=== PATIENT | female | born 1980 | race Caucasian/White ===

== ENCOUNTER 2021-06-01 01:46 | Inpatient (IN) | payer MEDICAID ==
[~2021-06-01] VITALS: Ht 162.5 cm; Wt 124.0 kg
[2021-06-01] MEDS: dilTIAZem DRIP PRE-MIX 125 ML IV SCH ×3 (03:15→22:55)
[2021-06-01] MEDS ORDERED: dilTIAZem DRIP PRE-MIX 125 ML IV ONE (03:26)
[2021-06-01] MEDS ORDERED: ACETAMINOPHEN 500 MG TAB (TYLENOL) PO PRN (03:30)
[2021-06-01] MEDS ORDERED: ONDANSETRON 4 MG/2 ML (SDV) Z0FRAN IVP PRN (03:30)
[2021-06-01 04:19] LABS: BASOPHILS # (AUTO) 0.1 10^3/uL (0.0-0.1); BASOPHILS % (AUTO) 0 % (0-10); EOSINOPHILS % (AUTO) 0 % (0-10); HEMATOCRIT 39 % (35-52); HEMOGLOBIN 11.9 g/dL (11.5-16.0); LYMPHOCYTES # (AUTO) 1.1 10^3/uL (1.0-4.0); LYMPHOCYTES % (AUTO) 5 % (12-44); MEAN CORPUSCULAR HEMOGLOBIN 26 pg (25-34); MEAN CORPUSCULAR HGB CONC 31 g/dL (32-36); MEAN CORPUSCULAR VOLUME 85 fL (80-99); MEAN PLATELET VOLUME 9.3 fL (9.0-12.2); MONOCYTES # (AUTO) 0.3 10^3/uL (0.0-1.0); MONOCYTES % (AUTO) 1 % (0-12); NEUTROPHILS # (AUTO) 18.4 10^3/uL (1.8-7.8); NEUTROPHILS % (AUTO) 92 % (42-75); PLATELET COUNT 389 10^3/uL (130-400)
[2021-06-01 04:27] LABS: POTASSIUM 3.6 MMOL/L (3.6-5.0)
[2021-06-01 04:28] LABS: CALCIUM 8.9 MG/DL (8.5-10.1)
[2021-06-01 04:32] LABS: CREATININE SERUM 0.7 MG/DL (0.60-1.30); PHOSPHORUS 2.6 MG/DL (2.3-4.7)
[2021-06-01 04:35] LABS: MAGNESIUM 1.7 MG/DL (1.6-2.4)
[2021-06-01] MEDS: KCL 20 MEQ TAB (K-DUR) PO SCH (05:20)
[2021-06-01] MEDS: MAGNESIUM 1 GM/100 ML IVPB 100 ML IV SCH ×2 (05:20→05:56)
[2021-06-01] MEDS: POTASSIUM CL 10MEQ/50ML IVPB 50 ML IV SCH (05:20)
[2021-06-01 05:26] LABS: BAND NEUTROPHILS 1 %; HYPOCHROMASIA SLIGHT; LYMPHOCYTES % (MANUAL) 5 %; MICROCYTOSIS SLIGHT; NEUTROPHILS % (MANUAL) 94 %
[2021-06-01] MEDS: inSUlin ASPART (NovoLOG) 1 UNIT/0.01 ML (CHARGE PER UNIT) SC SCH ×4 (05:55→20:42)
--- NOTE | 2021-06-01 07:29 | Diagnostic Imaging Report ---
INDICATION: Short of breath EXAMINATION: Chest 06/01/2021 FINDINGS: There is an infiltrate in left perihilar region with diffuse increased interstitial markings throughout both lungs. Diffuse scattered infiltrates throughout the right lung likely. There is cardiomegaly and pulmonary vascular congestion. No effusions. No pneumothorax. IMPRESSION: 1. Pulmonary edema. 2. Diffuse infiltrates with more pronounced infiltrate in the left perihilar region. Follow-up recommended to assure complete resolution and exclude mass in the left perihilar region. Dictated by: Dictated on workstation # [id number]
[2021-06-01] MEDS ORDERED: KCL 20 MEQ TAB (K-DUR) PO ONE (08:00)
--- NOTE | 2021-06-01 08:27 | Consultation-Cardiology ---
HPI-Cardiology Cardiology Consultation: Date of Consultation 06/01/2021 Date of Admission 06/01/2021 Attending Physician Isabell Cardenas DO Admitting Physician Ivanna,Local Physician Consulting Physician TREVA LLANES JR, MD HPI: Time Seen by a Provider: 08:27 Chief Complaint: Reason for consultation: Atrial fibrillation. I had the pleasure of seeing Walter in the intensive care unit at [place], [place] this morning. She has a history of type 2 diabetes mellitus, peripheral arterial disease with previous nonhealing wounds, worse on the left leg, morbid obesity, and cigarette smoking. She denies any previous history of heart disease. For the past 3 days she has been having increasing dyspnea and dyspnea on exertion. Her chronic lower extremity edema has been about the same as usual. She denies any fever, chills, night sweats or cough. Her dyspnea gradually got worse and worse and yesterday she went to the emergency room at [place]. She was found to have acute respiratory failure and also in atrial fibrillation with a rapid ventricular rate. She was then transferred to our hospital for further evaluation. She was initially on BiPAP but this morning refused to wear the BiPAP. She states her breathing is starting to improve. She denies chest discomfort, paroxysmal nocturnal dyspnea, orthopnea, palpitations, lightheadedness, or syncope. She smokes half a pack of cigarettes per day. She cut down from previously smoking 2 packs of cigarettes per day. She admits to not taking her medication properly for her diabetes. She works part-time at [employer]. Because of the atrial fibrillation, a cardiology consultation was requested. Certain portions of this document may have been dictated utilizing voice recognition technology. Inherent to this technology, typographical and grammatical errors may exist. As much as I am diligent to identify and correct these mistakes, some errors may remain in the document. Review of Systems-Cardiology Review of Systems Other comments Review of 10 organ systems is as per the history of present illness, otherwise negative. [id number] Hx Patient Social History Smoking Status: Current Everyday Smoker Pt feels they are or have been: Unable to obtain Tobacco type used: Cigarettes Past Medical History PMH As described under Assessment. Family Medical History Family Medical History: The patient does not know of any family history of premature coronary artery disease. Allergies and Home Medications Allergies Coded Allergies: tramadol (Verified Adverse Reaction, Mild, "jitter", 9/15/21) Patient Home Medication List Home Medication List Reviewed: Yes Ibuprofen (Ibuprofen) 200 Mg Tablet, 800 MG PO Q8H PRN for PAIN-MILD (1-4), (Reported) Entered as Reported by: RENÉ WHALEN on 06/01/21 1026 Last Action: Reviewed Exam Vital Signs Vital Signs Date Time Temp Pulse Resp B/P (MAP) Pulse Ox O2 Delivery O2 Flow Rate FiO2 06/01/21 12:58 101 06/01/21 10:42 95 32 06/01/21 10:00 23 100/89 Nasal Cannula 8.00 06/01/21 08:00 36.1 Physical Exam General: Alert. No acute distress. Well nourished and appears stated age. She is morbidly obese. Eye: Extraocular movements are intact. Conjunctivae are clear. There are no xanthelasma. HENT: Normocephalic. Atraumatic. Carotid pulsations 2/2 without bruits. Neck: Jugular venous pressure does not appear elevated. No thyromegaly appreciated. Respiratory: Lungs have bibasilar crackles. Respirations are non-labored. Breath sounds are equal. Symmetrical chest wall expansion. Cardiovascular: Normal rate. Irregular rhythm. No murmur. No gallop. Point of maximal impulse is not appear displaced. Good pulses equal in all extremities. 1+ bilateral pretibial edema with some old healed wounds on her left leg below the knee. Gastrointestinal: Soft. Normal bowel sounds. Skin: Skin turgor is normal. There is no pallor. Musculoskeletal: No kyphosis or scoliosis appreciated. Neurologic: Alert and oriented to person, place, time. Cranial nerves 3-12 appear grossly intact. The patient has good motor tone strength in the upper and lower extremities bilaterally. Psychiatric: Cooperative. Appropriate mood & affect. Labs Laboratory Tests Test 06/01/21 04:08 06/01/21 08:32 06/01/21 10:05 Range/Units White Blood Count 20.0 H 4.3-11.0 10^3/uL Red Blood Count 4.56 3.80-5.11 10^6/uL Hemoglobin 11.9 11.5-16.0 g/dL Hematocrit 39 35-52 % Mean Corpuscular Volume 85 80-99 fL Mean Corpuscular Hemoglobin 26 25-34 pg Mean Corpuscular Hemoglobin Concent 31 L 32-36 g/dL Red Cell Distribution Width 16.4 H 10.0-14.5 % Platelet Count 389 130-400 10^3/uL Mean Platelet Volume 9.3 9.0-12.2 fL Immature Granulocyte % (Auto) 1 % Neutrophils (%) (Auto) 92 H 42-75 % Lymphocytes (%) (Auto) 5 L 12-44 % Monocytes (%) (Auto) 1 0-12 % Eosinophils (%) (Auto) 0 0-10 % Basophils (%) (Auto) 0 0-10 % Neutrophils # (Auto) 18.4 H 1.8-7.8 10^3/uL Lymphocytes # (Auto) 1.1 1.0-4.0 10^3/uL Monocytes # (Auto) 0.3 0.0-1.0 10^3/uL Eosinophils # (Auto) 0.0 0.0-0.3 10^3/uL Basophils # (Auto) 0.1 0.0-0.1 10^3/uL Immature Granulocyte # (Auto) 0.1 0.0-0.1 10^3/uL Neutrophils % (Manual) 94 % Lymphocytes % (Manual) 5 % Band Neutrophils 1 % Hypochromasia SLIGHT Microcytosis SLIGHT Sodium Level 137 135-145 MMOL/L Potassium Level 3.6 3.6-5.0 MMOL/L Chloride Level 105 98-107 MMOL/L Carbon Dioxide Level 20 L 21-32 MMOL/L Anion Gap 12 5-14 MMOL/L Blood Urea Nitrogen 8 7-18 MG/DL Creatinine 0.70 0.60-1.30 MG/DL Estimat Glomerular Filtration Rate 93 BUN/Creatinine Ratio 11 Glucose Level 235 H 70-105 MG/DL Calcium Level 8.9 8.5-10.1 MG/DL Phosphorus Level 2.6 2.3-4.7 MG/DL Magnesium Level 1.7 1.6-2.4 MG/DL Troponin I 0.029 H < 0.028 <0.028 NG/ML B-Type Natriuretic Peptide 559.1 H <100.0 PG/ML Triglycerides Level 75 <150 MG/DL Cholesterol Level 114 < 200 MG/DL LDL Cholesterol Direct 87 1-129 MG/DL VLDL Cholesterol 15 5-40 MG/DL HDL Cholesterol 22 L 40-60 MG/DL Procalcitonin 0.04 <0.10 NG/ML Glucometer 280 H 70-110 MG/DL Radiology ELECTROCARDIOGRAM: Atrial fibrillation with a ventricular rate of 90 bpm with occasional premature ventricular complexes versus aberrantly conducted atrial fibrillation and poor R wave progression. ECHOCARDIOGRAM: 1. The patient was in atrial fibrillation for the duration of the study. 2. Mild left ventricular dilatation with mild concentric left ventricular hypertrophy. Mild left ventricular systolic dysfunction with an estimated ejection fraction of 40-45% with global hypokinesis. 3. The left ventricular diastolic function could not be determined due to atrial fibrillation. 4. The left atrium is moderately dilated at 5.5 cm in diameter. 5. There is mild to moderate mitral regurgitation. 6. The estimated pulmonary artery systolic pressure is 30 mmHg. 7. The inferior vena cava is dilated but with normal respiratory variation which is consistent with mildly elevated right atrial pressure (8 mmHg). ECG Impression ECG Comment See above. Diagnosis/Problems Diagnosis/Problems (1) Paroxysmal atrial fibrillation Assessment & Plan: Exact duration unknown. The patient seems to be asymptomatic with this. She does have moderate dilatation of the left atrium which is suggestive of possible prolonged atrial fibrillation. I have added a TSH level to her blood work from this morning. Her heart rates are controlled on IV diltiazem. I will add long-acting metoprolol and attempt to wean off the intravenous diltiazem. I would like to avoid oral diltiazem given her left ventricular systolic dysfunction. I will also start her on rivaroxaban for stroke prophylaxis in anticipation of performing a cardioversion in the future. I should note, her [id number] score is 2 for female sex and diabetes. (2) Acute systolic heart failure Assessment & Plan: She has pulmonary congestion on her chest x-ray as well as bibasilar crackles and an elevated BNP in the setting of mild left ventricular systolic dysfunction. I will start her on IV furosemide. (3) Cardiomyopathy Assessment & Plan: She has mild left ventricular systolic dysfunction as noted on the echocardiogram from this morning. Some of this could be related to the atrial fibrillation with rapid ventricular rate resulting in tachycardia mediated cardiomyopathy. She does have evidence of congestive heart failure as outlined above. I will start her on metoprolol succinate. If her blood pressure tolerates the metoprolol, ultimately I will want to get her on ROLAND inhibitor or ARB. When she recovers from this acute illness, she will need an ischemic evaluation. I would prefer to do this after we get the patient back in a sinus rhythm. (4) Acute respiratory failure with hypoxemia Assessment & Plan: I suspect this is in part due to heart failure as well as perhaps her chronic obstructive pulmonary disease. I will initiate cardiac ther apy as above. The hospitalist will be managing the pulmonary side of things. (5) Peripheral arterial disease Assessment & Plan: Once she recovers from this acute illness, this will need long-term follow-up. (6) Cigarette smoker Assessment & Plan: Cigarette smoking cessation was strongly advised. The patient is already trying to cut down and has gone from 2 packs of cigarettes per day down to half pack of cigarettes per day. I congratulated her on her efforts. (7) Noncompliance with medication regimen Assessment & Plan: I stressed to the patient the importance of being compliant with medication, especially in light of her newly diagnosed cardiac disease. (8) Morbid obesity Assessment & Plan: She needs to work on weight loss. TREVA LLANES JR, MD Jun 01, 2021 08:27
[2021-06-01] MEDS ORDERED: IBUP-2473 PO (10:26)
[2021-06-01 10:42] VITALS: BP 109/72
[2021-06-01] MEDS ORDERED: RT-ALBUTEROL/IPRATROPIUM 3 ML (DUONEB) VIAL INH PRN (10:45)
[2021-06-01] MEDS: RT-ALBUTEROL/IPRATROPIUM 3 ML (DUONEB) VIAL INH SCH ×4 (10:59→21:43)
--- NOTE | 2021-06-01 11:53 | Progress Note ---
HARIS VÁSQUEZ MED STUDENT 06/01/21 1153: Subjective Date Seen by a Provider: Jun 01, 2021 Time Seen by a Provider: 08:00 Subjective/Events-last exam Patient awake, alert and getting TTE at bedside in room. She denies chest pain, SOB, headache, fevers, chills, nausea, dizziness, syncope, and palpitations. She reports she's breathing better and denies SOB. Tolerated BIPAP while it was on. Currently monitor shows atrial fibrillation and she's on a cardizem gtt at 10mg/hr. Review of Systems General: No Chills, No Night Sweats HEENT: No Head Aches, No Visual Changes Pulmonary: No Dyspnea, No Cough Cardiovascular: Edema (chronic BLE edema); No: Chest Pain, Palpitations, Paroxysmal Noc. Dyspnea Gastrointestinal: No: Nausea, Vomiting Genitourinary: No Dysuria, No Frequency Musculoskeletal: No: neck pain, back pain Neurological: No: Weakness, Numbness Objective Exam Last Set of Vital Signs Vital Signs Date Time Temp Pulse Resp B/P (MAP) Pulse Ox O2 Delivery O2 Flow Rate FiO2 06/01/21 10:42 103 95 32 06/01/21 10:00 23 100/89 Nasal Cannula 8.00 06/01/21 03:51 36.4 Capillary Refill : Less Than 3 Seconds General: Alert, Oriented X3, Cooperative, No Acute Distress, Other (Morbidly obese female appearing older than stated age) HEENT: Atraumatic, PERRLA, EOMI, Mucous Memb Moist/[place] Neck: Supple, No LAD Lungs: Clear to Auscultation, Normal Air Movement Heart: No Murmurs, Other (Irregularrly irregular. Afib per bedside monitor. 1+ bilat pitting edema lower extremities. ) Abdomen: Normal Bowel Sounds, Soft, No Tenderness, Other (Obese. BS normoactive x 4 quadrants. ) Extremities: No Clubbing, No Cyanosis, Normal Pulses, No Tenderness/Swelling Skin: No Rashes, No Breakdown, No Significant Lesion, Other (Old healed ulcers on lower aspect bilat lower extremities distal to knee. Discolored. ) Neuro: Normal Speech, Normal Tone, Sensation Intact, Cranial Nerves 3-12 NL Psych/Mental Status: Mental Status NL, Mood NL Results Lab Laboratory Tests 06/01/21 04:08: White Blood Count 20.0H, Red Blood Count 4.56, Hemoglobin 11.9, Hematocrit 39, Mean Corpuscular Volume 85, Mean Corpuscular Hemoglobin 26, Mean Corpuscular Hemoglobin Concent 31L, Red Cell Distribution Width 16.4H, Platelet Count 389, Mean Platelet Volume 9.3, Immature Granulocyte % (Auto) 1, Neutrophils (%) (Auto) 92H, Lymphocytes (%) (Auto) 5L, Monocytes (%) (Auto) 1, Eosinophils (%) (Auto) 0, Basophils (%) (Auto) 0, Neutrophils # (Auto) 18.4H, Lymphocytes # (Auto) 1.1, Monocytes # (Auto) 0.3, Eosinophils # (Auto) 0.0, Basophils # (Auto) 0.1, Immature Granulocyte # (Auto) 0.1, Neutrophils % (Manual) 94, Lymphocytes % (Manual) 5, Band Neutrophils 1, Hypochromasia SLIGHT, Microcytosis SLIGHT, Sodium Level 137, Potassium Level 3.6, Chloride Level 105, Carbon Dioxide Level 20L, Anion Gap 12, Blood Urea Nitrogen 8, Creatinine 0.70, Estimat Glomerular Filtration Rate 93, BUN/Creatinine Ratio 11, Glucose Level 235H, Calcium Level 8.9, Phosphorus Level 2.6, Magnesium Level 1.7, Troponin I 0.029H, B-Type Natriuretic Peptide 559.1H, Triglycerides Level 75, Cholesterol Level 114, LDL Cholesterol Direct 87, VLDL Cholesterol 15, HDL Cholesterol 22L, Procalcitonin 0.04 06/01/21 08:32: Glucometer 280H 06/01/21 10:05: Troponin I < 0.028 Radiology NAME: GUALBERTO ZAMORA [facility] REC#: [id number] PT STATUS: ADM IN : 1980 PHYSICIAN: ISABELL GERARDO DO ADMIT DATE: 06/01/21/ICU Signed Date of Exam:06/01/21 CHEST 1 VIEW, AP/PA ONLY INDICATION: Short of breath EXAMINATION: Chest 06/01/2021 FINDINGS: There is an infiltrate in left perihilar region with diffuse increased interstitial markings throughout both lungs. Diffuse scattered infiltrates throughout the right lung likely. There is cardiomegaly and pulmonary vascular congestion. No effusions. No pneumothorax. IMPRESSION: 1. Pulmonary edema. 2. Diffuse infiltrates with more pronounced infiltrate in the left perihilar region. Follow-up recommended to assure complete resolution and exclude mass in the left perihilar region. Dictated by: Dictated on workstation # [id number] Dict: 06/01/2125 Trans: 06/01/21 1110 [facility] [id number] Interpreted by: EM GARCIA MD Electronically signed by: EM GARCIA MD 06/01/21 1110 Assessment/Plan Assessment/Plan Assess & Plan/Chief Complaint Atrial fibrillation with RVR -cardiology consulted -cardizem gtt -anticoagulation Acute hypoxic respiratory failure -BIPAP, wean to NC as tolerated -ABG if worsening respiratory/mental status -Keep sat's >90% -IS Systolic HF -echo showed EF 45-50% -Pulmonary edema. Diffuse infiltrates with more pronounced infiltrate in the left perihilar region. -BNP of 559 -cards seeing -diurese Leukocytosis -WBC of 20.0 -reactive vs infection? -procalcitonion 0.04 Type 2 Diabetes mellitus -accuchecks achs, SSI -diabetic diet -hgb a1c pending COPD -albuterol nebs -steroids Tobacco use -encouraged cessation PAD H/O medication noncompliance Morbid obesity ISABELL GERARDO DO 06/02/21 0552: Supervisory-Addendum Brief Verification & Attestation Participated in pt care: history, MDM, physical Personally performed: exam, history, MDM, supervision of care Care discussed with: Medical Student Procedures: n/a Results interpretation: Verified all documentation Verification and Attestation of Medical Student E/M Service A medical student performed and documented this service in my presence. I reviewed and verified all information documented by the medical student and made modifications to such information, when appropriate. I personally performed the physical exam and medical decision making. Isabell Gerardo Jun 02, 2021,05:51 HARIS VÁSQUEZ MED STUDENT Jun 01, 2021 11:53 ISABELL GERARDO DO Jun 02, 2021 05:52
[2021-06-01] MEDS ORDERED: meTOproloL SUCCINATE 50 MG (TOPROL XL) TAB PO NR (13:15)
[2021-06-01] MEDS ORDERED: RT-ALBUTEROL SULF 2.5 MG/3 ML PRE-MIX VIAL INH NR (13:30)
[2021-06-01] MEDS ORDERED: FUROSEMIDE 40 MG/4 ML INJ (LASIX) IVP NR (13:30)
--- NOTE | 2021-06-01 13:32 | History & Physical-Hospitalist ---
History of Present Illness HPI/Chief Complaint Walter Strong is a 40-year-old female with past medical history of type 2 diabetes mellitus, peripheral artery disease, tobacco abuse, super obesity, who was admitted as a transfer from [facility] with atrial fibrillation with rapid ventricular response. She reports that she had been feeling short of breath. She denies having cough. She denies fevers and chills. She denies chest pain and palpitations. She has no history of an irregular heartbeat. She has no history of heart disease. She denies abdominal pain, nausea, vomiting, and diarrhea. She reports that she is noncompliant with her prescribed medications. Source: patient Exam Limitations: no limitations Date Seen 06/01/21 Time Seen by a Provider: 08:40 Attending Physician Isabell Cardenas DO PCP No,Local Physician Referring Physician Date of Admission Jun 01, 2021 at 03:09 Home Medications & Allergies Home Medications Reviewed patient Home Medication Reconciliation performed by pharmacy medication reconciliations wastewater technician and/or nursing. Patients Allergies have been reviewed. Allergies Allergies Coded Allergies tramadol (Verified Adverse Reaction, Mild, "jitter", 06/01/21) Past Dtwlmow-Xqxkaj-Umyolr Hx Patient Social History Tobacco type used: Cigarettes Smoking Status: Current Everyday Smoker Pt feels they are or have been: Unable to obtain Current Status Advance Directives: No Communicates: Verbally Primary Language: Tongan Preferred Spoken Language: Tongan Is interpretation needed?: No Past Medical History Hypertension Diabetes, Non-Insulin dep Family Medical History No Pertinent Family Hx Review of Systems Constitutional: no symptoms reported EENTM: no symptoms reported Respiratory: short of breath Cardiovascular: no symptoms reported Gastrointestinal: no symptoms reported Genitourinary: no symptoms reported Musculoskeletal: no symptoms reported Skin: no symptoms reported Psychiatric/Neurological: No Symptoms Reported Physical Exam Physical Exam Vital Signs Vital Signs - First Documented 06/01/21 06/01/21 03:16 03:30 Temp 36.4 Pulse 112 Resp 18 B/P (MAP) 140/129 Pulse Ox 96 O2 Delivery NIV Bilevel O2 Flow Rate 35.00 FiO2 35 Capillary Refill : Less Than 3 Seconds Height, Weight, BMI Height: '" Weight: lbs. oz. kg; 47.14 BMI Method: General Appearance: No Apparent Distress, Obese HEENT: PERRL/EOMI, Pharynx Normal Neck: Normal Inspection, Supple Respiratory: Lungs Clear, Normal Breath Sounds, No Respiratory Distress Cardiovascular: No Murmur, Irregularly Irregular, Tachycardia Gastrointestinal: Normal Bowel Sounds, Non Tender, Soft Extremity: Normal Inspection, Non Tender, No Pedal Edema Neurologic/Psychiatric: Alert, Oriented x3, No Motor/Sensory Deficits, Normal Mood/Affect Skin: Normal Color, Warm/Dry Results Results/Procedures Labs Laboratory Tests 06/01/21 04:08 Patient resulted labs reviewed. Imaging: Reviewed Imaging Report Assessment/Plan Admission Diagnosis Atrial fibrillation with rapid ventricular response Admission Status: Inpatient Order (span 2 midnights) Reason for Inpatient Admission: IV antiarrhythmics Assessment and Plan New onset paroxysmal atrial fibrillation with rapid ventricular response Cardiology consulted, appreciate assistance Started on IV diltiazem Begin Xarelto Further treatment and evaluation per cardiology Pneumonia Chest x-ray with diffuse infiltrates and left periapical opacity Begin Rocephin and azithromycin T2DM with hyperglycemia Non-compliant with outpatient medication Begin Levemir Sliding scale insulin Super obesity Clinically significant, no acute management needs Tobacco abuse Nicotine patch DVT prophylaxis: already receiving therapeutic anticoagulation Diagnosis/Problems Diagnosis/Problems (1) Atrial fibrillation with rapid ventricular response Status: Acute (2) PNA (pneumonia) Status: Acute Qualifiers: Laterality: left (3) T2DM (type 2 diabetes mellitus) Status: Acute Qualifiers: Diabetes mellitus shelter insulin use: without extermination inspector use Diabetes mellitus complication status: with hyperglycemia Qualified Codes: E11.65 - Type 2 diabetes mellitus with hyperglycemia (4) Super obesity Status: Chronic ODESSA SOMMERS MD Jun 01, 2021 13:32
[2021-06-01] MEDS ORDERED: AZITHROMYCIN INJECTION 500 MG in NS (IVPB) 250 ML IV NR (13:45)
[2021-06-01] MEDS ORDERED: NICOTINE 14 MG (NICODERM) PATCH TD ONE (14:00)
[2021-06-01] MEDS: cefTRIAXone 2,000 MG in WATER (STERILE) FOR INJECTION 20 ML IV SCH (14:39)
[2021-06-01 14:45] VITALS: BP 150/99
[2021-06-01] MEDS ORDERED: WATER (STERILE) FOR INJECTION 20 ML ONE (14:45)
[2021-06-01] MEDS: RIVAROXABAN 20 MG TABLET (XARELTO) PO SCH (16:58)
--- NOTE | 2021-06-01 18:31 | Tele-ICU Progress Note ---
Subjective Date Seen by a Provider: Jun 01, 2021 Time Seen by a Provider: 08:08 Sepsis Event Evaluation Height, Weight, BMI Height: '" Weight: lbs. oz. kg; 47.14 BMI Method: Exam Exam Patient acknowledged, consented, and participated in this virtual visit which was conducted using real time audio/video Vital Signs Date Time Temp Pulse Resp B/P (MAP) Pulse Ox O2 Delivery O2 Flow Rate FiO2 06/01/21 18:00 112 14 144/95 95 Nasal Cannula 8.00 06/01/21 17:00 110 16 119/85 95 Nasal Cannula 8.00 06/01/21 16:00 Nasal Cannula 5.00 06/01/21 16:00 105 21 126/87 92 Nasal Cannula 8.00 06/01/21 16:00 36.6 06/01/21 15:00 125 25 144/121 93 Nasal Cannula 8.00 06/01/21 14:45 106 32 97 35.00 06/01/21 14:00 120 27 125/96 92 Nasal Cannula 8.00 06/01/21 13:00 89 14 158/114 94 Nasal Cannula 8.00 06/01/21 12:58 101 06/01/21 12:00 Nasal Cannula 5.00 06/01/21 12:00 98 16 140/94 92 Nasal Cannula 8.00 06/01/21 11:00 90 24 136/116 94 Nasal Cannula 8.00 06/01/21 10:42 103 95 32 06/01/21 10:00 111 23 100/89 93 Nasal Cannula 8.00 06/01/21 09:00 98 14 132/93 94 Nasal Cannula 8.00 06/01/21 08:19 Nasal Cannula 8.00 06/01/21 08:00 Nasal Cannula 5.00 06/01/21 08:00 36.1 06/01/21 08:00 101 18 114/87 97 NIV Bilevel 35.00 06/01/21 07:00 107 18 116/89 97 NIV Bilevel 35.00 06/01/21 06:43 91 06/01/21 06:00 96 21 128/97 97 NIV Bilevel 35.00 06/01/21 05:00 109 19 132/114 97 NIV Bilevel 35.00 06/01/21 04:45 112 22 128/102 96 NIV Bilevel 35.00 06/01/21 04:30 122 22 145/117 96 NIV Bilevel 35.00 06/01/21 04:15 115 21 138/120 96 NIV Bilevel 35.00 06/01/21 04:00 108 19 158/117 96 NIV Bilevel 35.00 06/01/21 03:51 36.4 112 18 83/53 96 NIV Bilevel 35.00 06/01/21 03:45 69 20 157/117 97 NIV Bilevel 35.00 06/01/21 03:30 109 20 140/129 95 NIV Bilevel 35.00 06/01/21 03:17 131 06/01/21 03:16 NIV Bilevel 35 06/01/21 03:16 36.4 112 18 96 NIV Bilevel 35.00 I & O 06/01/21 07:00 Intake Total 150 ml Output Total 1000 ml Balance -850 ml Height & Weight Height: '" Weight: lbs. oz. kg; 47.14 BMI Method: General Appearance: No Apparent Distress, Obese HEENT: PERRL/EOMI, Pharynx Normal Neck: Normal Inspection, Supple Respiratory: Lungs Clear, Normal Breath Sounds, No Respiratory Distress Cardiovascular: No Murmur, Irregularly Irregular, Tachycardia Capillary Refill: Less Than 3 Seconds Extremity: Normal Inspection, Non Tender, No Pedal Edema Neurologic/Psychiatric: Alert, Oriented x3, No Motor/Sensory Deficits, Normal Mood/Affect Skin: Normal Color, Warm/Dry Results Lab Laboratory Tests 06/01/21 04:08 Assessment/Plan Assessment/Plan (Tele-ICU Physician , consultation) Available chart/ vitals / labs / Images reviewed H&P is from ER notes Patient's information available about PMH, Shx, Fhx allergy reviewed in EMR. ROS as per chart and RN report Now in ICU, hemodynamically stable on BIPAP Video assessment done using teleICU camera, rest of exam as per RN Discussed with RN. 06/01 - transferred from OSH to ICU with a fib RVR / ARF on BIPAP Consultants: cards A/P Acute resp failure - pulm quin +/- PNA = Bipap 17/5 35% rr tv 700 - doing well on 5 L nc - Tx with lasix and steroids A fib RVR ( with h/o a fib -cardizem gtt started OSH - AC as per cards Leukocytosis - suspected PNA L>R - recom starting abx , PCT ordered by PCP - pending ( s/p COVID 4 month ago, neg swab 06/01 ) DM , Hyperglycemia - ISS COPD - nebs , steroids , Lines : (Central Line Necessity Reviewed) Gillis: OG: Nutrition: Analgesia: Anxiety/ delirium VTE Prophylaxis: Stress Ulcer Prophylaxis: Glycemic Control: Plans in collaboration with bedside consultants and IM MDs. Discussed with RN to reach out if any questions or concerns A total of 30minutes of critical care time was devoted to this patient today, required to treat and/or prevent further deterioration of critical care condition ( as above ) VINOD ALVAREZ MD Jun 01, 2021 18:31
[2021-06-01 23:07] LABS: BILIRUBIN,URINE NEGATIVE (NEGATIVE); CLARITY,URINE CLEAR; COLOR,URINE RED; GLUCOSE, URINE (UA) TRACE (NEGATIVE); KETONES,URINE NEGATIVE (NEGATIVE); LEUKOCYTE ESTERASE ,URINE TRACE (NEGATIVE); NITRITE,URINE NEGATIVE (NEGATIVE); PH,URINE 6.5 (5-9); PROTEIN,URINE NEGATIVE (NEGATIVE)
[2021-06-01 23:16] LABS: BACTERIA,URINE NEGATIVE /HPF; RBC,URINE TNTC /HPF
[2021-06-02] MEDS: RT-ALBUTEROL/IPRATROPIUM 3 ML (DUONEB) VIAL INH SCH ×6 (02:56→21:25)
[2021-06-02 05:41] LABS: BASOPHILS # (AUTO) 0.1 10^3/uL (0.0-0.1); BASOPHILS % (AUTO) 0 % (0-10); EOSINOPHILS % (AUTO) 0 % (0-10); HEMATOCRIT 35 % (35-52); HEMOGLOBIN 10.9 g/dL (11.5-16.0); LYMPHOCYTES # (AUTO) 2.9 10^3/uL (1.0-4.0); LYMPHOCYTES % (AUTO) 13 % (12-44); MEAN CORPUSCULAR HEMOGLOBIN 27 pg (25-34); MEAN CORPUSCULAR HGB CONC 32 g/dL (32-36); MEAN CORPUSCULAR VOLUME 84 fL (80-99); MEAN PLATELET VOLUME 9.4 fL (9.0-12.2); MONOCYTES # (AUTO) 1.1 10^3/uL (0.0-1.0); MONOCYTES % (AUTO) 5 % (0-12); NEUTROPHILS % (AUTO) 82 % (42-75); PLATELET COUNT 391 10^3/uL (130-400); WHITE BLOOD COUNT 23.3 10^3/uL (4.3-11.0)
[2021-06-02 05:51] LABS: ALBUMIN 3.2 GM/DL (3.2-4.5)
[2021-06-02 05:53] LABS: CALCIUM 8.8 MG/DL (8.5-10.1)
[2021-06-02 05:54] LABS: TOTAL PROTEIN 6.6 GM/DL (6.4-8.2)
[2021-06-02 05:55] LABS: BILIRUBIN,TOTAL 0.2 MG/DL (0.1-1.0)
[2021-06-02 05:58] LABS: CREATININE SERUM 0.71 MG/DL (0.60-1.30)
[2021-06-02 06:00] LABS: MAGNESIUM 2.4 MG/DL (1.6-2.4)
[2021-06-02] MEDS: POTASSIUM CL 10MEQ/50ML IVPB 50 ML IV SCH (06:02)
[2021-06-02] MEDS: MAGNESIUM 1 GM/100 ML IVPB 100 ML IV SCH (06:02)
[2021-06-02] MEDS: KCL 20 MEQ TAB (K-DUR) PO SCH (06:02)
[2021-06-02] MEDS: inSUlin ASPART (NovoLOG) 1 UNIT/0.01 ML (CHARGE PER UNIT) SC SCH ×4 (06:06→20:19)
--- NOTE | 2021-06-02 07:43 | Diagnostic Imaging Report ---
CHEST 1 VIEW, AP/PA ONLY Indication: Congestive heart failure. Comparison: 06/01/2021 Findings: Improving but persistent central vascular congestion and perihilar opacities. No pleural effusion or pneumothorax. Stable enlargement of the cardiac silhouette. Impression: 1. Improving but persistent pulmonary edema. Dictated by: Dictated on workstation # [id number]
[2021-06-02] MEDS: FUROSEMIDE 40 MG/4 ML INJ (LASIX) IVP SCH (08:28)
[2021-06-02] MEDS: NICOTINE 14 MG (NICODERM) PATCH TD SCH (08:29)
[2021-06-02] MEDS: NICOTINE PATCH REMOVAL TP SCH (08:29)
[2021-06-02] MEDS ORDERED: meTOproloL SUCCINATE 50 MG (TOPROL XL) TAB PO SCH (09:00)
[2021-06-02] MEDS ORDERED: AZITHROMYCIN 250 MG TAB (ZITHROMAX) PO SCH (09:00)
--- NOTE | 2021-06-02 09:10 | Progress Note ---
HARIS VÁSQUEZ MED STUDENT 06/02/21 0910: Subjective Date Seen by a Provider: Jun 02, 2021 Time Seen by a Provider: 07:45 Subjective/Events-last exam Patient awake and alert, oriented x 4. Denies complaints. Denies pain. Tolerating po intake well. Patient states didn't sleep well due to numerous interruptions overnight. She said "the doctors didn't tell me anything that's going on here." Reiterated her plan of care and answered questions she had. Review of Systems General: No Chills, No Night Sweats HEENT: No Head Aches, No Visual Changes Pulmonary: No Dyspnea, No Cough Cardiovascular: No: Chest Pain, Palpitations Gastrointestinal: No: Nausea, Vomiting Genitourinary: No Dysuria, No Frequency Musculoskeletal: No: neck pain, back pain Neurological: No: Weakness, Numbness, Change in speech, Confusion Objective Exam Last Set of Vital Signs Vital Signs Date Time Temp Pulse Resp B/P (MAP) Pulse Ox O2 Delivery O2 Flow Rate FiO2 06/02/21 08:00 36.0 06/02/21 07:10 94 Nasal Cannula 3.00 06/02/21 06:59 84 06/02/21 06:00 19 139/95 06/01/21 10:42 32 Capillary Refill : Less Than 3 Seconds I&O Intake and Output 06/02/21 00:00 Intake Total 2620 ml Output Total 3900 ml Balance -1280 ml Intake Oral 2000 ml IV Total 620 ml Output Urine Total 3900 ml # Voids 1 General: Alert, Oriented X3, Cooperative, No Acute Distress, Other (Morbidly obese. ) HEENT: Atraumatic, PERRLA, EOMI, Mucous Memb Moist/Blacktail Neck: Supple, No LAD Lungs: Clear to Auscultation Heart: Other (Irregularrly irregular by auscultation. Afib per monitor. ) Abdomen: Normal Bowel Sounds, Soft, No Tenderness, Other (obese) Extremities: No Clubbing, No Cyanosis, Normal Pulses, No Tenderness/Swelling Skin: No Rashes, No Breakdown, No Significant Lesion Neuro: Normal Speech, Normal Tone, Sensation Intact, Cranial Nerves 3-12 NL Psych/Mental Status: Mental Status NL Results Lab Laboratory Tests 06/01/21 10:05: Troponin I < 0.028, Thyroid Stimulating Hormone (TSH) 1.01 06/01/21 15:49: Glucometer 318H 06/01/21 20:36: Glucometer 247H 06/01/21 22:40: Urine Color REDH, Urine Clarity CLEAR, Urine pH 6.5, Urine Specific [place] 1.010L, Urine Protein NEGATIVE, Urine Glucose (UA) TRACEH, Urine Ketones NEGATIV E, Urine Nitrite NEGATIVE, Urine Bilirubin NEGATIVE, Urine Urobilinogen 0.2, Urine Leukocyte Esterase TRACEH, Urine RBC (Auto) 3+H, Urine RBC TNTCH, Urine WBC 2-5, Urine Squamous Epithelial Cells 2-5, Urine Crystals NONE, Urine Bacteria NEGATIVE, Urine Casts NONE, Urine Mucus NEGATIVE, Urine Culture Indicated NO 06/02/21 05:30: White Blood Count 23.3H, Red Blood Count 4.10, Hemoglobin 10.9L, Hematocrit 35, Mean Corpuscular Volume 84, Mean Corpuscular Hemoglobin 27, Mean Corpuscular Hemoglobin Concent 32, Red Cell Distribution Width 16.5H, Platelet Count 391, Mean Platelet Volume 9.4, Immature Granulocyte % (Auto) 1, Neutrophils (%) (Auto) 82H, Lymphocytes (%) (Auto) 13, Monocytes (%) (Auto) 5, Eosinophils (%) (Auto) 0, Basophils (%) (Auto) 0, Neutrophils # (Auto) 19.0H, Lymphocytes # (Auto) 2.9, Monocytes # (Auto) 1.1H, Eosinophils # (Auto) 0.0, Basophils # (Auto) 0.1, Immature Granulocyte # (Auto) 0.2H, Sodium Level 138, Potassium Level 4.0, Chloride Level 106, Carbon Dioxide Level 23, Anion Gap 9, Blood Urea Nitrogen 18, Creatinine 0.71, Estimat Glomerular Filtration Rate 91, BUN/Creatinine Ratio 25, Glucose Level 243H, Calcium Level 8.8, Corrected Calcium 9.4, Phosphorus Level 3.0, Magnesium Level 2.4, Total Bilirubin 0.2, Aspartate Amino Transf (AST/SGOT) 13, Alanine Aminotransferase (ALT/SGPT) 18, Alkaline Phosphatase 101, Total Protein 6.6, Albumin 3.2 Microbiology 06/01/21 MRSA Screen - Final, Complete Assessment/Plan Assessment/Plan Assess & Plan/Chief Complaint Atrial fibrillation with RVR -cardiology following -cardizem gtt -xarelto Acute hypoxic respiratory failure -improved -NC 3L -ABG if worsening respiratory/mental status -Keep sat's >90% -IS Q2hr WA Systolic HF -echo showed EF 45-50% - -16 cxray Improving but persistent pulmonary edema. -BNP of 559 9-15 -cards seeing -lasix PNA -azithromycin and rocephin Leukocytosis -WBC of 23.3 today -procalcitonion 0.02 -16 Type 2 Diabetes mellitus -accuchecks achs, SSI + levemir -diabetic diet -hgb a1c 7.5 COPD -albuterol nebs Tobacco use -encouraged cessation PAD H/O medication noncompliance Morbid obesity ISABELL GERARDO DO 06/03/21 1145: Supervisory-Addendum Brief Verification & Attestation Participated in pt care: history, MDM, physical Personally performed: exam, history, MDM, supervision of care Care discussed with: Medical Student Procedures: n/a Results interpretation: Verified all documentation Verification and Attestation of Medical Student E/M Service A medical student performed and documented this service in my presence. I reviewed and verified all information documented by the medical student and made modifications to such information, when appropriate. I personally performed the physical exam and medical decision making. Isabell Gerardo, Jun 03, 2021,11:45 HARIS VÁSQUEZ MED STUDENT Jun 02, 2021 09:10 ISABELL GERARDO DO Jun 03, 2021 11:45
[2021-06-02] MEDS: dilTIAZem DRIP PRE-MIX 125 ML IV SCH ×2 (09:42→23:03)
[2021-06-02 11:11] VITALS: BP 130/101
--- NOTE | 2021-06-02 12:13 | Tele-ICU Progress Note ---
Subjective Date Seen by a Provider: Jun 02, 2021 Time Seen by a Provider: 12:13 Sepsis Event Evaluation Height, Weight, BMI Height: '" Weight: lbs. oz. kg; 47.14 BMI Method: Exam Exam Patient acknowledged, consented, and participated in this virtual visit which was conducted using real time audio/video Vital Signs Date Time Temp Pulse Resp B/P (MAP) Pulse Ox O2 Delivery O2 Flow Rate FiO2 06/02/21 11:18 94 21.00 06/02/21 11:11 107 28 97 35.00 06/02/21 10:00 134 19 136/86 93 Nasal Cannula 2.00 06/02/21 09:00 105 15 136/95 92 Nasal Cannula 2.00 06/02/21 08:00 36.0 06/02/21 08:00 105 25 145/107 93 Nasal Cannula 2.00 06/02/21 07:10 94 Nasal Cannula 3.00 06/02/21 07:00 97 15 146/103 94 Nasal Cannula 2.00 06/02/21 06:59 84 06/02/21 06:00 80 19 139/95 95 Nasal Cannula 3.00 06/02/21 05:00 109 17 131/80 93 Nasal Cannula 3.00 06/02/21 04:16 36.0 74 Nasal Cannula 3.00 06/02/21 04:00 105 16 115/91 91 Nasal Cannula 3.00 06/02/21 04:00 91 Nasal Cannula 3.00 06/02/21 03:00 111 18 128/90 94 Room Air 06/02/21 02:59 Room Air 06/02/21 02:57 90 Room Air 2.00 06/02/21 02:00 101 27 120/93 91 Nasal Cannula 2.00 06/02/21 01:00 96 06/02/21 01:00 96 27 124/96 92 Nasal Cannula 2.00 06/02/21 00:00 92 23 113/91 94 Nasal Cannula 2.00 06/01/21 23:00 94 Nasal Cannula 2.00 06/01/21 23:00 123 22 140/93 93 Nasal Cannula 2.00 06/01/21 22:55 36.0 Nasal Cannula 2.00 06/01/21 22:00 98 16 137/95 94 Nasal Cannula 2.00 06/01/21 21:43 93 Nasal Cannula 2.00 06/01/21 21:00 103 16 133/112 94 Nasal Cannula 2.00 06/01/21 20:00 105 15 137/99 93 Nasal Cannula 2.00 06/01/21 20:00 35.7 06/01/21 19:45 93 Nasal Cannula 2.00 06/01/21 19:45 80 15 134/90 93 Nasal Cannula 2.00 06/01/21 19:00 90 06/01/21 19:00 90 14 133/106 94 Nasal Cannula 2.00 06/01/21 19:00 Nasal Cannula 2.00 06/01/21 18:31 94 Nasal Cannula 3.00 06/01/21 18:00 112 14 144/95 95 Nasal Cannula 8.00 06/01/21 17:00 110 16 119/85 95 Nasal Cannula 8.00 06/01/21 16:00 Nasal Cannula 5.00 06/01/21 16:00 105 21 126/87 92 Nasal Cannula 8.00 06/01/21 16:00 36.6 06/01/21 15:00 125 25 144/121 93 Nasal Cannula 8.00 06/01/21 14:45 106 32 97 35.00 06/01/21 14:00 120 27 125/96 92 Nasal Cannula 8.00 06/01/21 13:00 89 14 158/114 94 Nasal Cannula 8.00 06/01/21 12:58 101 I & O 06/02/21 07:00 Intake Total 3120 ml Output Total 4550 ml Balance -1430 ml Height & Weight Height: '" Weight: lbs. oz. kg; 47.14 BMI Method: General Appearance: No Apparent Distress, Obese HEENT: PERRL/EOMI, Pharynx Normal Neck: Normal Inspection, Supple Respiratory: Lungs Clear, Normal Breath Sounds, No Respiratory Distress Cardiovascular: No Murmur, Irregularly Irregular, Tachycardia Capillary Refill: Less Than 3 Seconds Extremity: Normal Inspection, Non Tender, No Pedal Edema Neurologic/Psychiatric: Alert, Oriented x3, No Motor/Sensory Deficits, Normal Mood/Affect Skin: Normal Color, Warm/Dry Results Lab Laboratory Tests 06/01/21 04:08 06/02/21 05:30 Assessment/Plan Assessment/Plan Available chart/ vitals / labs / Images reviewed Video assessment done using teleICU camera, rest of exam as per RN Discussed with RN , EXAM PER RN Events overnight : Afebrile I/O = neg 1200 Drips: diltiazem Pressors: , hemodynamically stable Hospital course: 06/01 - transferred from OSH to ICU with a fib RVR / ARF on BIPAP 06/02 - 3L NC , ECHO 06/01 EF 45% RCSP 30 mmHg Consultants: johanny A/P Acute resp failure - pulm quin +/- PNA = Bipap OFF doing well on 53L nc - Tx with lasix and now OFF steroids A fib RVR ( -cardizem gtt - AC with xarelto - ECHO 06/01 EF 45% RCSP 30 mmHg -cards follow Leukocytosis - suspected PNA L>R - recom starting abx , PCT ordered by PCP - pending ( s/p COVID 4 month ago, neg swab 06/01 ) nasal swab + mrsa - bactroban nasal , no need for systemic tx with improved O2 - if worsenign - will need adjust abx DM , Hyperglycemia - ISS COPD - nebs , steroids OFF Anemia - follow , as per PCP Lines : (Central Line Necessity Reviewed) Gillis: OG: Nutrition: Analgesia: Anxiety/ delirium VTE Prophylaxis: Stress Ulcer Prophylaxis: Glycemic Control: Plans in collaboration with bedside consultants and IM MDs. Discussed with RN to reach out if any questions or concerns A total of 30minutes of critical care time was devoted to this patient today, required to treat and/or prevent further deterioration of critical care condition ( as above ) VINOD ALVAREZ MD Jun 02, 2021 12:13
[2021-06-02] MEDS ORDERED: meTOproloL SUCCINATE 50 MG (TOPROL XL) TAB PO ONE (12:15)
[2021-06-02] MEDS: cefTRIAXone 2,000 MG in WATER (STERILE) FOR INJECTION 20 ML IV SCH (12:32)
--- NOTE | 2021-06-02 13:14 | Cardiology Progress Note ---
Progress Note-Cardiology Events since last exam Date Seen by Provider: Jun 02, 2021 Time Seen by Provider: 13:13 Events since last exam I am following her due to atrial fibrillation, cardiomyopathy and heart failure. She remains in the ICU on IV diltiazem. She states that her breathing is much improved. She denies chest discomfort, palpitations, syncope, or ankle edema. She wants to know when she will be able to go home. Certain portions of this document may have been dictated utilizing voice recognition technology. Inherent to this technology, typographical and grammatical errors may exist. As much as I am diligent to identify and correct these mistakes, some errors may remain in the document. Vitals Last set of Vitals Signs Vital Signs 06/01/21 06/02/21 06/02/21 10:42 12:41 15:00 Temp 36.3 Pulse 101 Resp 15 B/P (MAP) 119/96 Pulse Ox 93 O2 Delivery Nasal Cannula O2 Flow Rate 2.00 FiO2 32 Labs Labs Laboratory Tests 06/02/21 05:30 Exam Vital Signs Vital Signs Date Time Temp Pulse Resp B/P (MAP) Pulse Ox O2 Delivery O2 Flow Rate FiO2 06/02/21 15:00 101 15 119/96 93 Nasal Cannula 2.00 06/02/21 12:41 36.3 06/01/21 10:42 32 Physical Exam General: Alert. No acute distress. She is morbidly obese Eye: No xanthelasma. HENT: Normocephalic. Neck: Jugular venous pressure does not appear elevated. Respiratory: Lungs are clear to auscultation. Respirations are non-labored. Breath sounds are equal. Symmetrical chest wall expansion. Cardiovascular: Tachycardia with a regular rhythm. No murmur. No gallop. 1+ bilateral pretibial edema. Diminished pedal pulses. Gastrointestinal: Soft. Normal bowel sounds. Skin: Warm. Dry. Old healed wounds on lower extremities, mostly confined to the left. Neurologic: Alert and oriented to person, place, time. Cranial nerves 3-11 grossly intact. Psychiatric: Cooperative. Appropriate mood & affect. Labs Laboratory Tests Test 06/01/21 20:36 06/01/21 22:40 06/02/21 05:30 06/02/21 11:03 Range/Units Glucometer 247 H 199 H 70-110 MG/DL Urine Color RED H Urine Clarity CLEAR Urine pH 6.5 5-9 Urine Specific [place] 1.010 L 1.016-1.022 Urine Protein NEGATIVE NEGATIVE Urine Glucose (UA) TRACE H NEGATIVE Urine Ketones NEGATIVE NEGATIVE Urine Nitrite NEGATIVE NEGATIVE Urine Bilirubin NEGATIVE NEGATIVE Urine Urobilinogen 0.2 < = 1.0 MG/DL Urine Leukocyte Esterase TRACE H NEGATIVE Urine RBC (Auto) 3+ H NEGATIVE Urine RBC TNTC H /HPF Urine WBC 2-5 /HPF Urine Squamous Epithelial Cells 2-5 /HPF Urine Crystals NONE /LPF Urine Bacteria NEGATIVE /HPF Urine Casts NONE /LPF Urine Mucus NEGATIVE /LPF Urine Culture Indicated NO White Blood Count 23.3 H 4.3-11.0 10^3/uL Red Blood Count 4.10 3.80-5.11 10^6/uL Hemoglobin 10.9 L 11.5-16.0 g/dL Hematocrit 35 35-52 % Mean Corpuscular Volume 84 80-99 fL Mean Corpuscular Hemoglobin 27 25-34 pg Mean Corpuscular Hemoglobin Concent 32 32-36 g/dL Red Cell Distribution Width 16.5 H 10.0-14.5 % Platelet Count 391 130-400 10^3/uL Mean Platelet Volume 9.4 9.0-12.2 fL Immature Granulocyte % (Auto) 1 % Neutrophils (%) (Auto) 82 H 42-75 % Lymphocytes (%) (Auto) 13 12-44 % Monocytes (%) (Auto) 5 0-12 % Eosinophils (%) (Auto) 0 0-10 % Basophils (%) (Auto) 0 0-10 % Neutrophils # (Auto) 19.0 H 1.8-7.8 10^3/uL Lymphocytes # (Auto) 2.9 1.0-4.0 10^3/uL Monocytes # (Auto) 1.1 H 0.0-1.0 10^3/uL Eosinophils # (Auto) 0.0 0.0-0.3 10^3/uL Basophils # (Auto) 0.1 0.0-0.1 10^3/uL Immature Granulocyte # (Auto) 0.2 H 0.0-0.1 10^3/uL Sodium Level 138 135-145 MMOL/L Potassium Level 4.0 3.6-5.0 MMOL/L Chloride Level 106 98-107 MMOL/L Carbon Dioxide Level 23 21-32 MMOL/L Anion Gap 9 5-14 MMOL/L Blood Urea Nitrogen 18 7-18 MG/DL Creatinine 0.71 0.60-1.30 MG/DL Estimat Glomerular Filtration Rate 91 BUN/Creatinine Ratio 25 Glucose Level 243 H 70-105 MG/DL Calcium Level 8.8 8.5-10.1 MG/DL Corrected Calcium 9.4 8.5-10.1 MG/DL Phosphorus Level 3.0 2.3-4.7 MG/DL Magnesium Level 2.4 1.6-2.4 MG/DL Total Bilirubin 0.2 0.1-1.0 MG/DL Aspartate Amino Transf (AST/SGOT) 13 5-34 U/L Alanine Aminotransferase (ALT/SGPT) 18 0-55 U/L Alkaline Phosphatase 101 40-136 U/L Total Protein 6.6 6.4-8.2 GM/DL Albumin 3.2 3.2-4.5 GM/DL Procalcitonin 0.02 <0.10 NG/ML Diagnosis/Problems Diagnosis/Problems (1) Paroxysmal atrial fibrillation Assessment & Plan: Exact duration unknown. The patient seems to be asymptomatic with this. She does have moderate dilatation of the left atrium which is suggestive of possible prolonged atrial fibrillation. Her TSH level was normal. Her heart rates are controlled on IV diltiazem. I added metoprolol on 06/01 but she still has tachycardia. I will increase the metoprolol succinate to 100 mg daily. We will attempt to wean off the intravenous diltiazem. I would like to avoid oral diltiazem given her left ventricular systolic dysfunction. She should continue rivaroxaban for stroke prophylaxis. After 1 month of anticoagulation, I will consider cardioversion as an outpatient. (2) Acute systolic heart failure Assessment & Plan: She had pulmonary congestion on her chest x-ray from admission and an elevated BNP. I recommend we continue IV furosemide for at least the next day. She may need to be discharged on a low-dose of oral furosemide. (3) Cardiomyopathy Assessment & Plan: She has mild left ventricular systolic dysfunction as noted on the echocardiogram from 06/01. Some of this could be related to the atrial fibrillation with rapid ventricular rate resulting in tachycardia mediated cardiomyopathy. Once I maximize the metoprolol succinate to help control her heart rates from the atrial fibrillation, ultimately I will want to get her on ROLAND inhibitor or ARB. When she recovers from this acute illness, she will need an ischemic evaluation. I would prefer to do this after we get the patient back in a sinus rhythm. There is no urgent need for an ischemic evaluation at this time. (4) Acute respiratory failure with hypoxemia Assessment & Plan: I suspect this is in part due to heart failure as well as perhaps her chronic obstructive pulmonary disease. We will continue cardiac therapy as above. The hospitalist is managing the pulmonary conditions. (5) Peripheral arterial disease Assessment & Plan: Once she recovers from this acute illness, this will need long-term follow-up. There is no evidence of limb ischemia at this point in time. (6) Noncompliance with medication regimen Assessment & Plan: I stressed to the patient the importance of being compliant with medication, especially in light of her newly diagnosed cardiac disease. (7) Cigarette smoker Assessment & Plan: Cigarette smoking cessation was strongly advised. The patient is already trying to cut down and has gone from 2 packs of cigarettes per day down to half pack of cigarettes per day. I congratulated her on her efforts. (8) Morbid obesity Assessment & Plan: She needs to work on weight loss. TREVA LLANES JR, MD Jun 02, 2021 13:14
[2021-06-02] MEDS: RIVAROXABAN 20 MG TABLET (XARELTO) PO SCH (17:18)
--- NOTE | 2021-06-02 19:17 | Progress Note - Hospitalist ---
Subjective HPI/CC On Admission Date Seen by Provider: Jun 02, 2021 Time Seen by Provider: 09:30 Walter Strong is a 40-year-old female with past medical history of type 2 diabetes mellitus, peripheral artery disease, tobacco abuse, super obesity, who was admitted as a transfer from [facility] with atrial fibrillation with rapid ventricular response. She reports that she had been feeling short of breath. She denies having cough. She denies fevers and chills. She denies chest pain and palpitations. She has no history of an irregular heartbeat. She has no history of heart disease. She denies abdominal pain, nausea, vomiting, and diarrhea. She reports that she is noncompliant with her prescribed medications. Subjective/Events-last exam She is feeling better. She is not short of breath. She is not having chest pain or palpitations. She is not having cough or fever. She wants to take a shower. Objective Exam Vital Signs Vital Signs Date Time Temp Pulse Resp B/P (MAP) Pulse Ox O2 Delivery O2 Flow Rate FiO2 06/02/21 18:45 95 Nasal Cannula 3.00 06/02/21 18:00 104 23 125/91 06/02/21 12:41 36.3 06/01/21 10:42 32 Capillary Refill : Less Than 3 Seconds General Appearance: No Apparent Distress, Obese Respiratory: Lungs Clear, Normal Breath Sounds, No Respiratory Distress Cardiovascular: Irregularly Irregular, Tachycardia Gastrointestinal: Normal Bowel Sounds, Non Tender, Soft Extremity: Normal Inspection, Non Tender, Pedal Edema Neurologic/Psychiatric: Alert, Oriented x3 Skin: Normal Color, Warm/Dry Results/Procedures Lab Laboratory Tests 06/02/21 05:30 Patient resulted labs reviewed. Imaging: Reviewed Imaging Report Assessment/Plan Assessment and Plan Assess & Plan/Chief Complaint New onset paroxysmal atrial fibrillation with rapid ventricular response Cardiology consulted, appreciate assistance Increasing Metoprolol Continue Xarelto May need outpatient cardioversion Further treatment and evaluation per cardiology Pneumonia Chest x-ray with no evidence of pneumonia Procalcitonin remains normal Stop antibiotics T2DM with hyperglycemia Non-compliant with outpatient medication Continue Levemir Sliding scale insulin Super obesity Clinically significant, no acute management needs Tobacco abuse Nicotine patch DVT prophylaxis: already receiving therapeutic anticoagulation Diagnosis/Problems Diagnosis/Problems (1) Atrial fibrillation with rapid ventricular response Status: Acute (2) PNA (pneumonia) Status: Acute Qualifiers: Laterality: left (3) T2DM (type 2 diabetes mellitus) Status: Acute Qualifiers: Diabetes mellitus penitentiary insulin use: without penitentiary use Diabetes mellitus complication status: with hyperglycemia Qualified Codes: E11.65 - Type 2 diabetes mellitus with hyperglycemia (4) Super obesity Status: Chronic ODESSA SOMMERS MD Jun 02, 2021 19:17
[2021-06-02] MEDS: MUPIROCIN 2% OINT 22 GM (BACTROBAN) TUBE NSEACH SCH (20:24)
[2021-06-03] MEDS: RT-ALBUTEROL/IPRATROPIUM 3 ML (DUONEB) VIAL INH SCH ×3 (02:50→11:04)
[2021-06-03 05:57] LABS: BASOPHILS # (AUTO) 0.1 10^3/uL (0.0-0.1); BASOPHILS % (AUTO) 1 % (0-10); EOSINOPHILS # (AUTO) 0.2 10^3/uL (0.0-0.3); EOSINOPHILS % (AUTO) 1 % (0-10); HEMATOCRIT 39 % (35-52); HEMOGLOBIN 12.1 g/dL (11.5-16.0); LYMPHOCYTES # (AUTO) 4.1 10^3/uL (1.0-4.0); LYMPHOCYTES % (AUTO) 22 % (12-44); MEAN CORPUSCULAR HEMOGLOBIN 26 pg (25-34); MEAN CORPUSCULAR HGB CONC 31 g/dL (32-36); MEAN CORPUSCULAR VOLUME 84 fL (80-99); MONOCYTES % (AUTO) 5 % (0-12); NEUTROPHILS # (AUTO) 13.5 10^3/uL (1.8-7.8); NEUTROPHILS % (AUTO) 71 % (42-75); PLATELET COUNT 388 10^3/uL (130-400)
[2021-06-03 06:16] LABS: ALBUMIN 3.3 GM/DL (3.2-4.5); POTASSIUM 3.9 MMOL/L (3.6-5.0)
[2021-06-03 06:17] LABS: CALCIUM 8.7 MG/DL (8.5-10.1)
[2021-06-03 06:19] LABS: TOTAL PROTEIN 6.9 GM/DL (6.4-8.2)
[2021-06-03 06:20] LABS: BILIRUBIN,TOTAL 0.4 MG/DL (0.1-1.0)
[2021-06-03 06:22] LABS: CREATININE SERUM 0.62 MG/DL (0.60-1.30); PHOSPHORUS 3.2 MG/DL (2.3-4.7)
[2021-06-03] MEDS: MAGNESIUM 1 GM/100 ML IVPB 100 ML IV SCH (06:23)
[2021-06-03] MEDS: KCL 20 MEQ TAB (K-DUR) PO SCH (06:23)
[2021-06-03] MEDS: inSUlin ASPART (NovoLOG) 1 UNIT/0.01 ML (CHARGE PER UNIT) SC SCH (06:23)
[2021-06-03] MEDS: POTASSIUM CL 10MEQ/50ML IVPB 50 ML IV SCH (06:23)
[2021-06-03 06:25] LABS: MAGNESIUM 2.2 MG/DL (1.6-2.4)
[2021-06-03] MEDS: FUROSEMIDE 40 MG/4 ML INJ (LASIX) IVP SCH (07:50)
[2021-06-03] MEDS: MUPIROCIN 2% OINT 22 GM (BACTROBAN) TUBE NSEACH SCH (07:50)
[2021-06-03] MEDS: NICOTINE 14 MG (NICODERM) PATCH TD SCH (07:51)
[2021-06-03] MEDS: NICOTINE PATCH REMOVAL TP SCH (07:51)
--- NOTE | 2021-06-03 08:27 | Cardiology Progress Note ---
Progress Note-Cardiology Events since last exam Date Seen by Provider: Jun 03, 2021 Time Seen by Provider: 08:25 Events since last exam I am following her for atrial fibrillation and acute systolic heart failure. The diltiazem infusion was decreased to 5 mg/h this morning. I changed the metoprolol succinate to 100 mg daily on 06/02. Heart rates are still above 110 bpm with activity. She feels like her breathing is at her baseline. She wants to go home. She denies chest pain, palpitations, syncope, or ankle edema. She has been having some intermittent, asymptomatic bradycardia. Certain portions of this document may have been dictated utilizing voice recognition technology. Inherent to this technology, typographical and grammatical errors may exist. As much as I am diligent to identify and correct these mistakes, some errors may remain in the document. Vitals Last set of Vitals Signs Vital Signs 06/01/21 06/03/21 06/03/21 10:42 06:21 10:00 Pulse 104 Resp 20 B/P (MAP) 117/98 Pulse Ox 99 O2 Delivery Room Air O2 Flow Rate 0.00 FiO2 32 Labs Labs Laboratory Tests 06/03/21 05:48 Exam Vital Signs Vital Signs Date Time Temp Pulse Resp B/P (MAP) Pulse Ox O2 Delivery O2 Flow Rate FiO2 06/03/21 10:00 104 20 117/98 99 Room Air 06/03/21 08:00 36.5 06/03/21 06:21 0.00 06/01/21 10:42 32 Physical Exam General: Alert. No acute distress. She is morbidly obese Eye: No xanthelasma. HENT: Normocephalic. Neck: Jugular venous pressure does not appear elevated. Respiratory: Lungs are clear to auscultation. Respirations are non-labored. Breath sounds are equal. Symmetrical chest wall expansion. Cardiovascular: Tachycardia with irregular rhythm. No murmur. No gallop. Trace bilateral pretibial edema. Diminished pedal pulses. Gastrointestinal: Soft. Normal bowel sounds. Skin: Warm. Dry. Old healed wounds on lower extremities, mostly confined to the left. Neurologic: Alert and oriented to person, place, time. Cranial nerves 3-11 grossly intact. Psychiatric: Cooperative. Appropriate mood & affect. Labs Laboratory Tests Test 06/02/21 11:03 06/02/21 17:02 06/02/21 20:18 06/03/21 05:48 Range/Units Glucometer 199 H 223 H 170 H 70-110 MG/DL White Blood Count 19.0 H 4.3-11.0 10^3/uL Red Blood Count 4.63 3.80-5.11 10^6/uL Hemoglobin 12.1 11.5-16.0 g/dL Hematocrit 39 35-52 % Mean Corpuscular Volume 84 80-99 fL Mean Corpuscular Hemoglobin 26 25-34 pg Mean Corpuscular Hemoglobin Concent 31 L 32-36 g/dL Red Cell Distribution Width 17.0 H 10.0-14.5 % Platelet Count 388 130-400 10^3/uL Mean Platelet Volume 9.0 9.0-12.2 fL Immature Granulocyte % (Auto) 1 % Neutrophils (%) (Auto) 71 42-75 % Lymphocytes (%) (Auto) 22 12-44 % Monocytes (%) (Auto) 5 0-12 % Eosinophils (%) (Auto) 1 0-10 % Basophils (%) (Auto) 1 0-10 % Neutrophils # (Auto) 13.5 H 1.8-7.8 10^3/uL Lymphocytes # (Auto) 4.1 H 1.0-4.0 10^3/uL Monocytes # (Auto) 1.0 0.0-1.0 10^3/uL Eosinophils # (Auto) 0.2 0.0-0.3 10^3/uL Basophils # (Auto) 0.1 0.0-0.1 10^3/uL Immature Granulocyte # (Auto) 0.1 0.0-0.1 10^3/uL Sodium Level 138 135-145 MMOL/L Potassium Level 3.9 3.6-5.0 MMOL/L Chloride Level 105 98-107 MMOL/L Carbon Dioxide Level 24 21-32 MMOL/L Anion Gap 9 5-14 MMOL/L Blood Urea Nitrogen 16 7-18 MG/DL Creatinine 0.62 0.60-1.30 MG/DL Estimat Glomerular Filtration Rate 107 BUN/Creatinine Ratio 26 Glucose Level 145 H 70-105 MG/DL Calcium Level 8.7 8.5-10.1 MG/DL Corrected Calcium 9.3 8.5-10.1 MG/DL Phosphorus Level 3.2 2.3-4.7 MG/DL Magnesium Level 2.2 1.6-2.4 MG/DL Total Bilirubin 0.4 0.1-1.0 MG/DL Aspartate Amino Transf (AST/SGOT) 27 5-34 U/L Alanine Aminotransferase (ALT/SGPT) 26 0-55 U/L Alkaline Phosphatase 100 40-136 U/L Total Protein 6.9 6.4-8.2 GM/DL Albumin 3.3 3.2-4.5 GM/DL Diagnosis/Problems Diagnosis/Problems (1) Paroxysmal atrial fibrillation Assessment & Plan: Exact duration unknown. The patient seems to be asymptomatic with this. She does have moderate dilatation of the left atrium which is suggestive of possible prolonged atrial fibrillation. Her TSH level was normal. Her heart rates are controlled on IV diltiazem. I added metoprolol on 06/01 but she still has tachycardia. I will increase the metoprolol succinate to 200 mg daily. I am not particularly concerned about the asymptomatic bradycardia. I HAVE ASKED THE NURSE TO DISCONTINUE THE INTRAVENOUS DILTIAZEM. I WOULD LIKE TO AVOID ORAL DILTIAZEM GIVEN HER LEFT VENTRICULAR SYSTOLIC DYSFUNCTION. She should continue rivaroxaban for stroke prophylaxis. After 1 month of anticoagulation, I will consider cardioversion as an outpatient. If we can get her heart rate under control today, she may be able to be discharged home later today. She will need prescriptions for metoprolol and rivaroxaban. If we send the prescription for rivaroxaban to [facility], she could get this at the reduced rate. (2) Acute systolic heart failure Assessment & Plan: She had pulmonary congestion on her chest x-ray from admission and an elevated BNP. Her breathing has improved and her chest x-ray from 06/02 improved. I will change her furosemide over to oral. She may need to be discharged on a low-dose of oral furosemide. (3) Cardiomyopathy Assessment & Plan: She has mild left ventricular systolic dysfunction as noted on the echocardiogram from 06/01. Some of this could be related to the atrial fibrillation with rapid ventricular rate resulting in tachycardia mediated cardiomyopathy. Once I maximize the metoprolol succinate to help control her heart rates from the atrial fibrillation, ultimately I will want to get her on ROLAND inhibitor or ARB. When she recovers from this acute illness, she will need an ischemic evaluation. I would prefer to do this after we get the patient back in a sinus rhythm. There is no urgent need for an ischemic evaluation at this time. (4) Acute respiratory failure with hypoxemia Assessment & Plan: I suspect this is in part due to heart failure as well as perhaps her chronic obstructive pulmonary disease. We will continue cardiac therapy as above. The hospitalist is managing the pulmonary conditions. (5) Peripheral arterial disease Assessment & Plan: Once she recovers from this acute illness, this will need long-term follow-up. There is no evidence of limb ischemia at this point in time. (6) Noncompliance with medication regimen Assessment & Plan: I stressed to the patient the importance of being compliant with medication, especially in light of her newly diagnosed cardiac disease. (7) Cigarette smoker Assessment & Plan: Cigarette smoking cessation was strongly advised. The patient is already trying to cut down and has gone from 2 packs of cigarettes per day down to half pack of cigarettes per day. I congratulated her on her efforts. (8) Morbid obesity Assessment & Plan: She needs to work on weight loss. TREVA LLANES JR, MD Jun 03, 2021 08:27
[2021-06-03] MEDS ORDERED: meTOprolol SUCCINATE 100 MG (TOPROL XL) TAB PO SCH ×2 (09:00)
[2021-06-03] MEDS ORDERED: meTOprolol SUCCINATE 100 MG (TOPROL XL) TAB PO ONE (10:30)
--- NOTE | 2021-06-03 11:41 | Progress Note ---
HARIS VÁSQUEZ MED STUDENT 06/03/21 1141: Subjective Date Seen by a Provider: Jun 03, 2021 Time Seen by a Provider: 08:05 Subjective/Events-last exam Patient awake and alert and oriented x 4. Denies SOB, chest pain, fevers, cough, and diarrhea. Reports not tolerating BIPAP over night, wore for about 30 minutes overnight and then took off. She is tolerating po intake well. Vitals stable per bedside monitor. Remains on cardizem gtt. Heart rate has dropped into the 30's at times over night. Cardiology is aware per [employer] DEVELOPER. Review of Systems General: No Chills, No Night Sweats HEENT: No Head Aches, No Visual Changes Pulmonary: No Dyspnea, No Cough Cardiovascular: No: Chest Pain, Palpitations Gastrointestinal: No: Nausea, Vomiting Genitourinary: No Dysuria, No Frequency Musculoskeletal: No: neck pain, back pain Neurological: No: Weakness, Numbness Objective Exam Last Set of Vital Signs Vital Signs Date Time Temp Pulse Resp B/P (MAP) Pulse Ox O2 Delivery O2 Flow Rate FiO2 06/03/21 11:04 94 Room Air 0.00 06/03/21 11:00 107 19 135/106 06/03/21 08:00 36.5 06/01/21 10:42 32 Capillary Refill : Less Than 3 Seconds I&O Intake and Output 06/03/21 00:00 Intake Total 2245 ml Output Total 6950 ml Balance -4705 ml Intake Oral 1850 ml IV Total 395 ml Output Urine Total 6950 ml # Bowel Movements 1 General: Alert, Oriented X3, Cooperative, No Acute Distress HEENT: Atraumatic, PERRLA, EOMI, Mucous Memb Moist/[place] Neck: Supple, No LAD Lungs: Clear to Auscultation, Normal Air Movement Heart: Regular Rate, No Murmurs Abdomen: Normal Bowel Sounds, Soft, No Tenderness Extremities: No Clubbing, No Cyanosis, Normal Pulses Skin: No Rashes, No Significant Lesion Neuro: Sensation Intact, Cranial Nerves 3-12 NL Psych/Mental Status: Mental Status NL, Mood NL Results Lab Laboratory Tests 06/02/21 17:02: Glucometer 223H 06/02/21 20:18: Glucometer 170H 06/03/21 05:48: White Blood Count 19.0H, Red Blood Count 4.63, Hemoglobin 12.1, Hematocrit 39, Mean Corpuscular Volume 84, Mean Corpuscular Hemoglobin 26, Mean Corpuscular Hemoglobin Concent 31L, Red Cell Distribution Width 17.0H, Platelet Count 388, Mean Platelet Volume 9.0, Immature Granulocyte % (Auto) 1, Neutrophils (%) (Auto) 71, Lymphocytes (%) (Auto) 22, Monocytes (%) (Auto) 5, Eosinophils (%) (Auto) 1, Basophils (%) (Auto) 1, Neutrophils # (Auto) 13.5H, Lymphocytes # (Auto) 4.1H, Monocytes # (Auto) 1.0, Eosinophils # (Auto) 0.2, Basophils # (Auto) 0.1, Immature Granulocyte # (Auto) 0.1, Sodium Level 138, Potassium Level 3.9, Chloride Level 105, Carbon Dioxide Level 24, Anion Gap 9, Blood Urea Nitrogen 16, Creatinine 0.62, Estimat Glomerular Filtration Rate 107, BUN/Creatinine Ratio 26, Glucose Level 145H, Calcium Level 8.7, Corrected Calcium 9.3, Phosphorus Level 3.2, Magnesium Level 2.2, Total Bilirubin 0.4, Aspartate Amino Transf (AST/SGOT) 27, Alanine Aminotransferase (ALT/SGPT) 26, Alkaline Phosphatase 100, Total Protein 6.9, Albumin 3.3 Microbiology 06/01/21 MRSA Screen - Final, Complete Assessment/Plan Assessment/Plan Assess & Plan/Chief Complaint Atrial fibrillation with RVR -cardiology following -cardizem gtt -xarelto -metoprolol increased to 200mg daily per cards Acute hypoxic respiratory failure -resolved -RA -ABG if worsening respiratory/mental status -Keep sat's >90% -IS Q2hr WA Systolic HF -echo showed EF 45-50% - 9-16 cxray Improving but persistent pulmonary edema. -BNP of 559 9-15 -lasix Leukocytosis -WBC of 19 today -procalcitonion 0.02 9-16 Type 2 Diabetes mellitus -accuchecks achs, SSI + levemir -diabetic diet -hgb a1c 7.5 COPD -albuterol nebs Tobacco use -encouraged cessation PAD H/O medication noncompliance Morbid obesity Lines: PIV only Patient with likely MIMI given body habitus and history. Dr. Morley discussed need to followup on an outpatient basis with pulmonology and need for a sleep study. She acknowledged understanding. JOE MORLEY MD 06/03/21 1320: Subjective Subjective/Events-last exam [facility] [address] [place] [address] Progress Note - Med Stdnt Patient Name: Fiordaliza Duran Unit Number: [id number] Date of : 08/12/1954 Patient Status: Admitted Inpatient (obs) Attending Doctor: Sarah Stephen MD HARIS VÁSQUEZ MED STUDENT 06/03/21 0903: Subjective Subjective Date Seen by a Provider: Jun 03, 2021 Time Seen by a Provider: 07:50 Subjective/Events-last exam Patient awake and alert and oriented x 4. Denies chest pain, SOB, palpitations, dizziness, headaches, vomiting, and abdominal pain. States is breathing better this am and swelling in BLE has decreased quite a bit since yesterday. Denies any needs or questions currently. Review of Systems General: No Chills, No Night Sweats HEENT: No Head Aches, No Visual Changes Pulmonary: No Dyspnea, No Cough Cardiovascular: No: Chest Pain, Palpitations, Paroxysmal Noc. Dyspnea Gastrointestinal: No: Nausea, Vomiting, Abdominal Pain, Diarrhea, Melena Genitourinary: No Dysuria, No Frequency Musculoskeletal: No: neck pain, back pain Neurological: No: Weakness, Numbness Focused Exam Focused Exam Objective Objective Exam Last Set of Vital Signs Vital Signs Date Time Temp Pulse Resp B/P (MAP) Pulse Ox O2 Delivery O2 Flow Rate FiO2 06/03/21 08:00 36.1 06/03/21 08:00 89 16 106/83 97 Room Air Capillary Refill : Less Than 3 Seconds I&O Intake and Output 06/03/21 00:00 Daily Weight Change No General: Alert, Oriented X3, Cooperative, No Acute Distress, Other (Morbidly obese) HEENT: Atraumatic, PERRLA, EOMI, Mucous Memb Moist/[place] Neck: Supple, No LAD Lungs: Clear to Auscultation Heart: Other (Irregularrly irregular. Afib per bedside monitor on cardizem gtt) Abdomen: Normal Bowel Sounds, Soft, No Tenderness Extremities: No Clubbing, No Cyanosis, Normal Pulses, Other (1+ pitting edmea BLE. ) Skin: No Rashes, No Significant Lesion Neuro: Normal Speech, Sensation Intact, Cranial Nerves 3-12 NL Psych/Mental Status: Mental Status NL, Mood NL Results Lab Laboratory Tests 06/02/21 19:00: White Blood Count 7.3, Red Blood Count 3.82, Hemoglobin 11.9, Hematocrit 38, Mean Corpuscular Volume 99, Mean Corpuscular Hemoglobin 31, Mean Corpuscular Hemoglobin Concent 32, Red Cell Distribution Width 13.7, Platelet Count 243, Mean Platelet Volume 11.7, Immature Granulocyte % (Auto) 0, Neutrophils (%) (Auto) 81H, Lymphocytes (%) (Auto) 9L, Monocytes (%) (Auto) 7, Eosinophils (%) (Auto) 2, Basophils (%) (Auto) 0, Neutrophils # (Auto) 6.0, Lymphocytes # (Auto) 0.7L, Monocytes # (Auto) 0.5, Eosinophils # (Auto) 0.2, Basophils # (Auto) 0.0, Immature Granulocyte # (Auto) 0.0, Sodium Level 138, Potassium Level 5.0, Chloride Level 109H, Carbon Dioxide Level 16L, Anion Gap 13, Blood Urea Nitrogen 42H, Creatinine 2.29H, Estimat Glomerular Filtration Rate 21, BUN/Creatinine Ratio 18, Glucose Level 114H, Calcium Level 9.4, Corrected Calcium 9.5, Total Bilirubin 0.9, Aspartate Amino Transf (AST/SGOT) 19, Alanine Aminotransferase (ALT/SGPT) 18, Alkaline Phosphatase 90, Troponin I < 0.028, C-Reactive Protein High Sensitivity 0.25, B-Type Natriuretic Peptide 1105.7H, Total Protein 6.3L, Albumin 3.9 06/03/21 01:00: White Blood Count 6.4, Red Blood Count 3.48L, Hemoglobin 10.9L, Hematocrit 35, Mean Corpuscular Volume 101H, Mean Corpuscular Hemoglobin 31, Mean Corpuscular Hemoglobin Concent 31L, Red Cell Distribution Width 13.9, Platelet Count 173, Mean Platelet Volume 11.5, Immature Granulocyte % (Auto) 0, Neutrophils (%) (Auto) 68, Lymphocytes (%) (Auto) 16, Monocytes (%) (Auto) 12, Eosinophils (%) (Auto) 4, Basophils (%) (Auto) 1, Neutrophils # (Auto) 4.3, Lymphocytes # (Auto) 1.0, Monocytes # (Auto) 0.7, Eosinophils # (Auto) 0.2, Basophils # (Auto) 0.0, Immature Granulocyte # (Auto) 0.0, Sodium Level 136, Potassium Level 4.9, Chloride Level 109H, Carbon Dioxide Level 16L, Anion Gap 11, Blood Urea Nitrogen 43H, Creatinine 2.16H, Estimat Glomerular Filtration Rate 23, BUN/Creatinine Ratio 20, Glucose Level 97, Calcium Level 8.9, Corrected Calcium 9.3, Total Bilirubin 0.8, Aspartate Amino Transf (AST/SGOT) 18, Alanine Aminotransferase (ALT/SGPT) 18, Alkaline Phosphatase 80, Troponin I < 0.028, Total Protein 6.0L, Albumin 3.5, Phosphorus Level 4.4, Magnesium Level 2.8H, Triglycerides Level 64, Cholesterol Level 114, LDL Cholesterol Direct 62, VLDL Cholesterol 13, HDL Cholesterol 46 06/03/21 07:37: Troponin I < 0.028 Assessment/Plan Assessment/Plan Assessment/Plan Assess & Plan/Chief Complaint New onset atrial fibrillation with RVR -cardiology consulted -[facility] gtt -lovenox therapeutic dosing Acute CHF -9 cxray: Cardiomegaly with central vascular congestion. -echocardiogram -BNP 1105 -lasix HTN -continue to monitor YESICA vs CKD -baseline creatinine ? -creatinine 2.16 -continue to monitor Obesity Problem List Diagnosis/Problems Clinical Quality Measures Clinical Quality Measures Verification and Attestation Supervisory-Addendum Brief JOE MORLEY MD 06/03/21 1308: Subjective Subjective Focused Exam Focused Exam Objective Objective Assessment/Plan Assessment/Plan Assessment/Plan Assess & Plan/Chief Complaint Agree with medical student note, a fib looks controlled, will continue on present meds, cardiology to see for a fib Problem List Diagnosis/Problems Clinical Quality Measures Clinical Quality Measures Verification and Attestation Supervisory-Addendum Brief Verification & Attestation Participated in pt care: history, physical Personally performed: history Care discussed with: Medical Student Procedures: n/a Results interpretation: Verified all documentation agree with medical student note, will continue on [facility] for a fib, cardiology to follow HARIS VÁSQUEZ MED STUDENT Jun 03, 2021 09:03 JOE MORLEY MD Jun 03, 2021 13:08 Assessment/Plan Assessment/Plan Assess & Plan/Chief Complaint A fib under better control, II suspect pt has severe MIMI with associated pulm htn. As OP would get her tested for MIMI and encourage with a CPAP or BiPAP mask at least 4 hours/night Supervisory-Addendum Brief Verification & Attestation Participated in pt care: history, physical Personally performed: history, supervision of care Care discussed with: Medical Student Procedures: n/a Agree with medical student note ISABELL GERARDO DO 06/04/21 0629: Supervisory-Addendum Brief Verification & Attestation Participated in pt care: history, MDM, physical Personally performed: exam, history, MDM, supervision of care Care discussed with: Medical Student Procedures: n/a Results interpretation: Verified all documentation Verification and Attestation of Medical Student E/M Service A medical student performed and documented this service in my presence. I reviewed and verified all information documented by the medical student and made modifications to such information, when appropriate. I personally performed the physical exam and medical decision making. Isabell Gerardo, Jun 04, 2021,06:29 HARIS VÁSQUEZ MED STUDENT Jun 03, 2021 11:41 JOE MORLEY MD Jun 03, 2021 13:20 ISABELL GERARDO DO Jun 04, 2021 06:29
[2021-06-03] MEDS ORDERED: METF-397 PO (13:10)
[2021-06-03] MEDS ORDERED: FURO20TA4 PO (13:10)
[2021-06-03] MEDS ORDERED: MTP100TCR PO (13:10)
[2021-06-03] MEDS ORDERED: RIVA20TA2 PO ×2 (13:10→13:11)
[2021-06-04] MEDS ORDERED: FUROSEMIDE 20 MG (LASIX) TAB PO SCH (09:00)
[2021-06-04] MEDS ORDERED: meTOprolol SUCCINATE 100 MG (TOPROL XL) TAB PO SCH (09:00)
--- NOTE | 2021-06-05 13:23 | Discharge Summary ---
Discharge Summary Hospital Course Problems/Dx: (1) Paroxysmal atrial fibrillation (2) Acute systolic heart failure (3) Cardiomyopathy (4) Acute respiratory failure with hypoxemia (5) Peripheral arterial disease (6) Noncompliance with medication regimen (7) Cigarette smoker (8) Morbid obesity Hospital Course Date of Admission: Jun 01, 2021 at 03:09 Admission Diagnosis: Paroxysmal atrial fibrillation with rapid ventricular response Family Physician/Provider: Vamshi Goncalves Physician Date of Discharge: 06/03/21 Discharge Diagnosis: Paroxysmal atrial fibrillation with rapid ventricular response Hospital Course: Walter Strong is a 40-year-old female who was admitted with paroxysmal atrial fibrillation with rapid ventricular response. Cardiology was consulted and assisted with her care. She required an IV diltiazem drip initially. She was started on oral metoprolol and Xarelto and was transitioned off of the IV medications. She will follow up with Dr. Ugarte, cardiology, in about a month for reevaluation and possible cardioversion. She should follow-up with her primary care physician. She was discharged home in stable condition. Labs and Pending Lab Test: Microbiology 06/01/21 MRSA Screen - Final, Complete Home Meds Active Xarelto Tablet (Rivaroxaban) 20 Mg Tablet 20 Mg PO DAILY@1700 90 Days Metformin HCl 500 Mg Tablet 500 Mg PO DAILY 30 Days Furosemide 20 Mg Tablet 20 Mg PO DAILY 30 Days Metoprolol Succinate 100 Mg Tab.er.24h 200 Mg PO DAILY 30 Days Assessment/Pt Instructions Take medications as prescribed. Follow-up with your primary care physician and disability program navigator. Return with worsening shortness of breath or if you feel like you are getting worse. Discharge Planning: <30 minutes discharge planning Discharge Instructions Discharge Diet: Low Sodium Diet Activity as Tolerated: Yes Discharge Physical Examination Vital Signs Vital Signs Date Time Temp Pulse Resp B/P (MAP) Pulse Ox O2 Delivery O2 Flow Rate FiO2 06/03/21 13:00 84 06/03/21 13:00 13 128/104 93 Room Air 06/03/21 11:04 0.00 06/03/21 08:00 36.5 06/01/21 10:42 32 General Appearance: No Apparent Distress, Obese Respiratory: Lungs Clear, Normal Breath Sounds, No Respiratory Distress Cardiovascular: No Murmur, Irregularly Irregular Gastrointestinal: Normal Bowel Sounds, Non Tender, Soft Extremity: Normal Inspection, Non Tender, No Pedal Edema Skin: Normal Color, Warm/Dry Neurologic/Psychiatric: Alert, Oriented x3, No Motor/Sensory Deficits, Normal Mood/Affect Allergies: Coded Allergies: tramadol (Verified Adverse Reaction, Mild, "jitter", 06/01/21) Discharge Summary Date of Admission Jun 01, 2021 at 03:09 Date of Discharge Jun 03, 2021 at 14:20 Discharge Date: Jun 03, 2021 Discharge Time: 14:20 Admission Diagnosis Atrial fibrillation with rapid ventricular response Discharge Diagnosis New onset paroxysmal atrial fibrillation with rapid ventricular response (1) Paroxysmal atrial fibrillation (2) Acute systolic heart failure (3) Cardiomyopathy (4) Acute respiratory failure with hypoxemia (5) Peripheral arterial disease (6) Noncompliance with medication regimen (7) Cigarette smoker (8) Morbid obesity ODESSA SOMMERS MD Jun 05, 2021 13:23
== END 2021-06-03 14:20 | disposition home or self-care (01) | DRG 308 ==
LOC: ICU 03:09
PROVIDERS: ADMIT Internal Medicine; ATTEND Internal Medicine
PROC: 5A09357 Assistance with Respiratory Ventilation, Less than 24 Consecutive Hours, Continuous Positive Airway Pressure (ICD-10-PCS; principal; 2021-06-01)
DX: I48.0 Paroxysmal atrial fibrillation (principal); I50.21 Acute systolic (congestive) heart failure; J96.01 Acute respiratory failure with hypoxia; J18.9 Pneumonia, unspecified organism; Z68.42 Body mass index [BMI] 45.0-49.9, adult; J44.0 Chronic obstructive pulmonary disease with (acute) lower respiratory infection; N17.9 Acute kidney failure, unspecified; I13.0 Hypertensive heart and chronic kidney disease with heart failure and stage 1 through stage 4 chronic kidney disease, or unspecified chronic kidney disease; I42.9 Cardiomyopathy, unspecified; E11.65 Type 2 diabetes mellitus with hyperglycemia; F17.210 Nicotine dependence, cigarettes, uncomplicated; E66.01 Morbid (severe) obesity due to excess calories; Z91.14 Patient's other noncompliance with medication regimen; E11.51 Type 2 diabetes mellitus with diabetic peripheral angiopathy without gangrene; D72.829 Elevated white blood cell count, unspecified; D64.9 Anemia, unspecified; N18.9 Chronic kidney disease, unspecified; G47.33 Obstructive sleep apnea (adult) (pediatric)
CPT/HCPCS: 36415; 71045; 80048; 80053; 80061; 81000; 82947; 83036; 83735; 83880; 84100; 84145; 84443; 84484; 85007; 85025; 85027; 87081; 93005; 93306; 94640; 94660

== ENCOUNTER 2021-07-09 18:50 | Inpatient (IN) | payer MEDICAID ==
[~2021-07-09] VITALS: Ht 160 cm; Wt 129.6 kg
[~2021-07-09 18:50] MED LIST: FURO20TA4 PO; IBUP-2473 PO; METF-397 PO; MTP100TCR PO; RIVA20TA2 PO
[2021-07-09] MEDS ORDERED: ONDANSETRON 4 MG/2 ML (SDV) Z0FRAN IV PRN (19:00)
[2021-07-09] MEDS ORDERED: ANTACID SUSP 30 ML UDC (MYLANTA) PO PRN (19:00)
[2021-07-09] MEDS ORDERED: ACETAMINOPHEN 325 MG TABLET PO PRN (19:00)
[2021-07-09] MEDS ORDERED: polyethylene glycoL POWDER 17 GM (MIRALAX) PACK PO PRN (19:00)
[2021-07-09] MEDS ORDERED: MELATONIN 3 MG TABLET PO PRN (19:00)
--- NOTE | 2021-07-10 03:49 | Tele-ICU Consult ---
History of Present Illness History of Present Illness Date Seen by Provider: Jul 10, 2021 Time Seen by Provider: 03:44 Date of Admission 40 y old lady admitted for a fib with RVR. Pt was started on apixiban/ cardizem drip. Pt presented with palpitations and sob; pt ran out of one of her meds. CT chest angio was negative for PE. Allergies and Home Medications Allergies Coded Allergies: tramadol (Verified Adverse Reaction, Mild, "jitter", 06/01/21) Home Medications Furosemide 20 Mg Tablet, 20 MG PO DAILY Prescribed by: ODESSA SOMMERS on 06/03/21 1310 Metformin HCl 500 Mg Tablet, 500 MG PO DAILY Prescribed by: ODESSA SOMMERS on 06/03/21 1310 Metoprolol Succinate 100 Mg Tab.er.24h, 200 MG PO DAILY Prescribed by: ODESSA SOMMERS on 06/03/21 1310 Rivaroxaban 20 Mg Tablet, 20 MG PO DAILY@1700 Prescribed by: ODESSA SOMMERS on 06/03/21 1311 Past Medical/Social/Family Hx Current Status Primary Language: Ukrainian Past Medical History COVID in 01/05 Review of Systems Constitutional: see HPI Respiratory: see HPI Sepsis Event Evaluation Height, Weight, BMI Height: '" Weight: lbs. oz. kg; 47.14 BMI Method: Exam Exam Patient acknowledged, consented, and participated in this virtual visit which was conducted using real time audio/video Height & Weight Height: '" Weight: lbs. oz. kg; 47.14 BMI Method: General Appearance: No Apparent Distress Assessment/Plan Assessment/Plan A fib with RVR -cardizem drip/ apixiban -echo in am since cxray showed pulm vascular congestion -basic labs to be ordered PNA per ct/ COVID negaitve now/ lactic acid MARILEE DAIGLE MD Jul 10, 2021 03:49
[2021-07-10] MEDS: APIXABAN 5 MG (ELIQUIS) TABLET PO SCH ×3 (04:03→20:38)
[2021-07-10] MEDS: dilTIAZem DRIP PRE-MIX 125 ML IV SCH ×2 (04:03→14:39)
[2021-07-10 05:19] LABS: HEMATOCRIT 36 % (35-52); HEMOGLOBIN 11.3 g/dL (11.5-16.0); MEAN CORPUSCULAR HEMOGLOBIN 27 pg (25-34); MEAN CORPUSCULAR HGB CONC 32 g/dL (32-36); MEAN CORPUSCULAR VOLUME 84 fL (80-99); MEAN PLATELET VOLUME 9.8 fL (9.0-12.2); PLATELET COUNT 361 10^3/uL (130-400); WHITE BLOOD COUNT 19.5 10^3/uL (4.3-11.0)
[2021-07-10 05:31] LABS: POTASSIUM 3.1 MMOL/L (3.6-5.0)
[2021-07-10 05:32] LABS: CALCIUM 8.8 MG/DL (8.5-10.1)
[2021-07-10 05:37] LABS: CREATININE SERUM 0.74 MG/DL (0.60-1.30)
[2021-07-10 05:59] LABS: PHOSPHORUS 3.2 MG/DL (2.3-4.7)
[2021-07-10 06:01] LABS: MAGNESIUM 1.5 MG/DL (1.6-2.4)
[2021-07-10] MEDS: POTASSIUM CL 10MEQ/50ML IVPB 50 ML IV SCH ×5 (06:18→10:19)
[2021-07-10] MEDS: KCL 20 MEQ TAB (K-DUR) PO SCH (06:19)
[2021-07-10] MEDS: MAGNESIUM 1 GM/100 ML IVPB 100 ML IV SCH ×3 (06:19→07:39)
[2021-07-10] MEDS: FUROSEMIDE 40 MG/4 ML INJ (LASIX) IVP SCH ×2 (06:21→17:14)
[2021-07-10 06:29] VITALS: BP 138/97
--- NOTE | 2021-07-10 08:27 | Tele-ICU Progress Note ---
Subjective Date Seen by a Provider: Jul 10, 2021 Time Seen by a Provider: 07:40 Subjective/Events-last exam This virtual visit was conducted using real time audio/video. Thank you for asking us to see this patient for afib w RVR, patient ran out of meds. PE: Morbidly obese, resting comfortably. HR 118 afib. HEENT: No obvious masses, adenopathy or JVD. Chest: clear to auscultation. CV: RRR S1 S2 No murmur or added sounds. Abd: Non-tender. Bowel sounds Y. : Unremarkable. Gillis N. SURGERY ASSISTANT/psychiatric: Alert and oriented, grossly intact. No obvious focal findings. Extremities: 1+ edema. Capillary refill < 3 seconds. Skin: unremarkable. Results: Elevated WCC 19.5. Decreased Hb 11.3, K 3.1, Mag 1.5. CTC: no PE. A/P: afib: Cont Eliquis, Cardizem, Lasix, KCl. Lytes replaced. Available chart/ vitals / labs / images reviewed. Video assessment done using teleICU camera, rest of exam as per RN. Critical Care: critically ill patient. Discussed with FLORA Chery. Asked RN to reach out to eICU if any questions or concerns later. Time spent with patient/coordination of care with other health professionals (mins): 15 Sepsis Event Evaluation Height, Weight, BMI Height: '" Weight: lbs. oz. kg; 50.85 BMI Method: Focused Exam Lactate Level 07/10/21 04:41: Lactic Acid Level 1.19 Lactic Acid Level Laboratory Tests Test 07/10/21 04:41 Lactic Acid Level 1.19 MMOL/L (0.50-2.00) Exam Exam Patient acknowledged, consented, and participated in this virtual visit which was conducted using real time audio/video Vital Signs Date Time Temp Pulse Resp B/P (MAP) Pulse Ox O2 Delivery O2 Flow Rate FiO2 07/10/21 07:29 Nasal Cannula 1.00 07/10/21 07:00 115 18 128/90 93 Nasal Cannula 2.00 07/10/21 07:00 98 07/10/21 06:29 121 93 28 07/10/21 06:00 121 18 138/97 93 Nasal Cannula 2.00 07/10/21 05:15 130 12 124/97 93 Nasal Cannula 2.00 07/10/21 04:45 134 17 138/107 91 Nasal Cannula 2.00 07/10/21 04:17 Nasal Cannula 2.00 07/10/21 04:15 110 17 141/102 95 Nasal Cannula 2.00 07/10/21 04:00 133 24 133/92 91 Nasal Cannula 2.00 07/10/21 03:45 129 13 133/83 94 Nasal Cannula 2.00 07/10/21 03:25 124 07/10/21 03:20 36.8 120 18 130/92 94 Nasal Cannula 2.00 I & O 07/10/21 06:59 Intake Total 1000 ml Output Total 0 ml Balance 1000 ml Height & Weight Height: '" Weight: lbs. oz. kg; 50.85 BMI Method: General Appearance: No Apparent Distress Capillary Refill: Less Than 3 Seconds Peripheral Pulses: 1+ Dorsalis Pedis (R), 1+ Left Dors-Pedis (L) Results Lab Laboratory Tests 07/10/21 04:41 Assessment/Plan Assessment/Plan See free text. Critical Care: Critically Ill Patient ASHLEY MARIN MD Jul 10, 2021 08:27
[2021-07-10 09:23] LABS: ABG BASE EXCESS 5.5 MMOL/L (-2.5-2.5); ABG OXYGEN SATURATION 93 % (94-100); ABG PCO2 44 MMHG (35-45); ABG PH 7.45 (7.37-7.43); ABG PO2 62 MMHG (79-93); ABG TCO2 30.9 MMOL/L (21.0-31.0)
[2021-07-10 09:27] LABS: ALLENS TEST YES-POS; INSPIRED O2 1 L; PATIENT TEMP 36.7; VENTILATOR NO
[2021-07-10] MEDS ORDERED: RT-ALBUTEROL SULF 2.5 MG/3 ML PRE-MIX VIAL INH PRN (10:30)
--- NOTE | 2021-07-10 11:07 | History & Physical-Hospitalist ---
History of Present Illness HPI/Chief Complaint She is a 40-year-old female with a past medical history of atrial fibrillation, systolic heart failure, smu-ewybsjg-lxyykqsqg diabetes, tobacco abuse who presented to the emergency department at [facility] due to palpitations. She has been out of her rate controlling medications recently. She was found to be in A. fib with RVR and was started on Cardizem. She was quite hypertensive as well and chest x-ray there per report revealed vascular congestion she was given 40 of IV Lasix and nitroglycerin with improvement in her blood pressure. She was transferred here for cardiology evaluation. This morning she is quite sleepy but does arouse easily but falls back asleep. She was only able to answer some yes or no questions. She denies a cough or chest pain at the moment. She nods when asked if her breathing has improved. Exam Limitations: clinical condition Date Seen 07/10/21 Time Seen by a Provider: 08:45 Attending Physician Crispin Kingston MD PCP No,Local Physician Referring Physician Date of Admission Jul 10, 2021 at 03:10 Home Medications & Allergies Home Medications Reviewed patient Home Medication Reconciliation performed by pharmacy medication reconciliations property technician and/or nursing. Patients Allergies have been reviewed. Allergies Allergies Coded Allergies tramadol (Verified Adverse Reaction, Mild, "jitter", 06/01/21) Past Wqyzyez-Unhdhb-Icdnhg Hx Patient Social History Tobacco Use?: Yes Tobacco type used: Cigarettes Smoking Status: Current Everyday Smoker Smokeless Tobacco Frequency: Never a User Use of E-Cig and/or Vaping dev: No Substance use?: No Alcohol Use?: No Pt feels they are or have been: No Current Status Advance Directives: No Communicates: Verbally Primary Language: Maltese Sensory deficits: Vision impairment Implanted or Applied Medical D: None Past Medical History Atrial Fibrillation, Cardiomyopathy, Hypertension Diabetes, Non-Insulin dep COVID in 01/05 Family Medical History Reviewed Nursing Family Hx No Pertinent Family Hx Review of Systems ROS-Unable to Obtain: drowsiness Constitutional: No chills, No fever EENTM: no symptoms reported Respiratory: short of breath Cardiovascular: palpitations Physical Exam Physical Exam Vital Signs Vital Signs - First Documented 07/10/21 07/10/21 03:20 06:29 Temp 36.8 Pulse 120 Resp 18 B/P (MAP) 130/92 Pulse Ox 94 O2 Delivery Nasal Cannula O2 Flow Rate 2.00 FiO2 28 Capillary Refill : Less Than 3 Seconds Height, Weight, BMI Height: '" Weight: lbs. oz. kg; 50.85 BMI Method: General Appearance: No Apparent Distress, Chronically ill, Obese, Other (drowsy) HEENT: PERRL/EOMI, Moist Mucous Membranes; No Scleral Icterus (L), No Scleral Icterus (R) Neck: Normal Inspection, Supple Respiratory: Lungs Clear, No Accessory Muscle Use, No Respiratory Distress Cardiovascular: No Murmur, Irregularly Irregular, Tachycardia Gastrointestinal: Normal Bowel Sounds, Non Tender, Soft Extremity: Pedal Edema, Swelling (2+ bilaterally) Neurologic/Psychiatric: Alert, Oriented x3, Normal Mood/Affect Skin: Erythema (venous stasis dermatitis on lower extremities) Results Results/Procedures Labs Laboratory Tests 07/10/21 04:41 Patient resulted labs reviewed. Assessment/Plan Admission Diagnosis a-fib with RVR Admission Status: Inpatient Order (span 2 midnights) Reason for Inpatient Admission: see below Assessment and Plan a-fib with RVR Acutely decompensated heart failure hypokalemia hypomagnesemia Continue on cardizem gtt Reports compliance at home with Eliquis but has been out of Toprol for at [facility] a few days- continue Eliquis Cardiology consulted, appreciate recs Telemetry Echo ordered by eICU Replace electrolytes Leukocytosis No indication of infection Will check procal T2DM with hyperglycemia History of noncompliance Sliding scale insulin Fasting BS 174 A1c last month was 7.5 Super obesity Clinically significant, no acute management needs ABG ordered due to drowsiness to make sure not retaining CO2 Tobacco abuse Nicotine patch DVT prophylaxis: already receiving therapeutic anticoagulation Diagnosis/Problems Diagnosis/Problems (1) Acute systolic heart failure (2) Peripheral arterial disease (3) Morbid obesity (4) Noncompliance with medication regimen (5) Atrial fibrillation with rapid ventricular response Status: Acute (6) T2DM (type 2 diabetes mellitus) Status: Acute Qualifiers: Diabetes mellitus termite helper insulin use: without nursing home use Diabetes mellitus complication status: with hyperglycemia Qualified Codes: E11.65 - Type 2 diabetes mellitus with hyperglycemia (7) Cigarette smoker (8) Acute respiratory failure with hypoxemia CRISPIN KINGSTON MD Jul 10, 2021 11:07
--- NOTE | 2021-07-10 11:37 | Consultation-Cardiology ---
HPI-Cardiology Cardiology Consultation Date of Consultation 07/10/21 Date of Admission Time Seen by Provider: 11:32 Indication: Atrial fibrillation HPI 40-year-old lady with history of paroxysmal atrial fibrillation, congestive heart failure, peripheral arterial disease and diabetes mellitus, she was hospitalized last month and seen by Dr. Ugarte for atrial fibrillation and co ngestive heart failure, heart rate was controlled, started on diuretics and she was scheduled for follow-up in 1 month for possible cardioversion. Patient expressed that she ran out of her medication 2 days ago but she denied stopping her oral anticoagulation. Came in to me via the emergency room for atrial fibrillation with rapid ventricular response, palpitation and shortness of breath. She was started on Cardizem drip. On my evaluation she was laying down in bed, still short of breath, frustrated. Denied any chest pain. No syncope. Home Medications & Allergies Allergies: Coded Allergies: tramadol (Verified Adverse Reaction, Mild, "jitter", 06/01/21) Home Medication List Reviewed: Yes ECE-Xkiflv-Fmuuvk Hx Patient Social History Smoking Status: Former Smoker (Stopped smoking last month) Have you traveled recently?: No Alcohol Use?: No Past Medical History Discussed below Family Medical History Significant Family History: No Pertinent Family Hx Family Medical Hx Noncontributory Review of Systems-General Review of Systems Constitutional: see HPI; No chills, No fever; malaise EENTM: see HPI, no symptoms reported Respiratory: see HPI, orthopnea, short of breath Cardiovascular: see HPI, palpitations Gastrointestinal: no symptoms reported, see HPI Genitourinary: no symptoms reported, see HPI Musculoskeletal: no symptoms reported, see HPI Skin: no symptoms reported, see HPI Psychiatric/Neurological: No Symptoms Reported, See HPI Reviewed Test Results Reviewed Test Results Lab Laboratory Tests Test 07/10/21 04:41 07/10/21 09:17 07/10/21 10:57 Range/Units White Blood Count 19.5 H 4.3-11.0 10^3/uL Red Blood Count 4.24 3.80-5.11 10^6/uL Hemoglobin 11.3 L 11.5-16.0 g/dL Hematocrit 36 35-52 % Mean Corpuscular Volume 84 80-99 fL Mean Corpuscular Hemoglobin 27 25-34 pg Mean Corpuscular Hemoglobin Concent 32 32-36 g/dL Red Cell Distribution Width 16.8 H 10.0-14.5 % Platelet Count 361 130-400 10^3/uL Mean Platelet Volume 9.8 9.0-12.2 fL Sodium Level 139 135-145 MMOL/L Potassium Level 3.1 L 3.6-5.0 MMOL/L Chloride Level 103 98-107 MMOL/L Carbon Dioxide Level 24 21-32 MMOL/L Anion Gap 12 5-14 MMOL/L Blood Urea Nitrogen 9 7-18 MG/DL Creatinine 0.74 0.60-1.30 MG/DL Estimat Glomerular Filtration Rate 87 BUN/Creatinine Ratio 12 Glucose Level 178 H 70-105 MG/DL Lactic Acid Level 1.19 0.50-2.00 MMOL/L Calcium Level 8.8 8.5-10.1 MG/DL Phosphorus Level 3.2 2.3-4.7 MG/DL Magnesium Level 1.5 L 1.6-2.4 MG/DL Blood Gas Puncture Site RT RAD Blood Gas Patient Temperature 36.7 Arterial Blood pH 7.45 H 7.37-7.43 Arterial Blood Partial Pressure CO2 44 35-45 MMHG Arterial Blood Partial Pressure O2 62 L 79-93 MMHG Arterial Blood HCO3 30 H 23-27 MMOL/L Arterial Blood Total CO2 30.9 21.0-31.0 MMOL/L Arterial Blood Oxygen Saturation 93 L 94-100 % Arterial Blood Base Excess 5.5 H -2.5-2.5 MMOL/L Hector Test YES-POS Blood Gas Ventilator Setting NO Blood Gas Inspired Oxygen 1 L Glucometer 174 H 70-110 MG/DL Physical Exam Physical Exam Vital Signs Vital Signs - First Documented 07/10/21 07/10/21 03:20 06:29 Temp 36.8 Pulse 120 Resp 18 B/P (MAP) 130/92 Pulse Ox 94 O2 Delivery Nasal Cannula O2 Flow Rate 2.00 FiO2 28 Capillary Refill : Less Than 3 Seconds Height, Weight, BMI Height: '" Weight: lbs. oz. kg; 50.85 BMI Method: General Appearance: No Apparent Distress, Chronically ill, Obese, Other (drowsy) HEENT: PERRL/EOMI, Moist Mucous Membranes; No Scleral Icterus (L), No Scleral Icterus (R) Neck: Normal Inspection, Supple Respiratory: No Accessory Muscle Use, No Respiratory Distress, Crackles Cardiovascular: No Murmur, Irregularly Irregular, Tachycardia Gastrointestinal: Normal Bowel Sounds, Non Tender, Soft Extremity: Pedal Edema, Swelling (2+ bilaterally) Neurologic/Psychiatric: Alert, Oriented x3, Normal Mood/Affect Skin: Erythema (venous stasis dermatitis on lower extremities) A/P-Cardiology Admission Diagnosis Acute respiratory failure Congestive heart failure, acute on chronic left ventricular systolic dysfunction, nonischemic cardiomyopathy Atrial fibrillation Tachycardia Assessment/Plan Acute respiratory failure, congestive heart failure with pulmonary edema, started on diuretics. Improving slowly. Congestive heart failure, acute on chronic left ventricular systolic dysfunction, probably secondary to tachycardia, has been on beta-mil, noncompliant with medication, educated on compliance. Restart medication and monitor tolerance and response Atrial fibrillation with rapid ventricular response, was on oral anticoagulation beta-blockers, noncompliant with medication, discussed with her the management plan recommended ANJU and cardioversion in the morning. Hypertension, currently borderline hypotensive, monitor blood pressure diabetes mellitus, followed and managed by primary care physician Tobaccoism, patient has stopped smoking on her last admission in May 2021, encouraged to continue with smoking cessation Morbid obesity, BMI 50 High risk for sleep apnea, highly suspicious of sleep apnea. Recommend sleep study. Patient will be following with ELIZABETH Zimmerman MD Jul 10, 2021 11:37
[2021-07-10] MEDS: inSUlin ASPART (NovoLOG) 1 UNIT/0.01 ML (CHARGE PER UNIT) SC SCH ×2 (17:14→20:38)
[2021-07-10] MEDS: NICOTINE 7 MG (NICODERM) PATCH TD SCH (20:39)
[2021-07-11] MEDS: dilTIAZem DRIP PRE-MIX 125 ML IV SCH (01:16)
--- NOTE | 2021-07-11 04:07 | Tele-ICU Progress Note ---
Subjective Date Seen by a Provider: Jul 11, 2021 Time Seen by a Provider: 04:06 Sepsis Event Evaluation Height, Weight, BMI Height: '" Weight: lbs. oz. kg; 50.85 BMI Method: Focused Exam Lactate Level 07/10/21 04:41: Lactic Acid Level 1.19 Exam Exam Patient acknowledged, consented, and participated in this virtual visit which was conducted using real time audio/video Vital Signs Date Time Temp Pulse Resp B/P (MAP) Pulse Ox O2 Delivery O2 Flow Rate FiO2 07/11/21 00:26 35.9 07/11/21 00:00 Nasal Cannula 2.00 07/10/21 23:00 125 16 100/81 93 Nasal Cannula 2.00 07/10/21 22:15 130 24 135/84 94 Nasal Cannula 2.00 07/10/21 21:00 111 15 113/85 93 Nasal Cannula 2.00 07/10/21 20:08 36.6 Nasal Cannula 2.00 07/10/21 20:08 131 17 106/86 89 Nasal Cannula 2.00 07/10/21 20:00 Nasal Cannula 2.00 07/10/21 19:00 106 07/10/21 19:00 106 16 148/103 96 Nasal Cannula 2.00 07/10/21 18:00 116 16 123/98 94 Nasal Cannula 2.00 07/10/21 17:11 36.6 07/10/21 17:00 125 22 128/107 93 Nasal Cannula 2.00 07/10/21 16:00 125 21 124/100 94 Nasal Cannula 2.00 07/10/21 15:13 Nasal Cannula 1.00 07/10/21 15:00 94 16 140/92 92 Nasal Cannula 2.00 07/10/21 14:00 97 20 115/82 94 Nasal Cannula 2.00 07/10/21 13:00 117 16 118/95 94 Nasal Cannula 2.00 07/10/21 12:31 127 07/10/21 12:10 36.6 07/10/21 12:00 52 15 142/96 93 Nasal Cannula 2.00 07/10/21 11:43 Nasal Cannula 1.00 07/10/21 11:00 138 18 95/73 92 Nasal Cannula 2.00 07/10/21 10:45 94 Nasal Cannula 2.00 07/10/21 10:00 116 19 119/99 89 Nasal Cannula 2.00 07/10/21 09:15 36.7 07/10/21 09:00 124 16 111/73 92 Nasal Cannula 2.00 07/10/21 08:00 59 40 89/56 Nasal Cannula 2.00 07/10/21 07:29 Nasal Cannula 1.00 07/10/21 07:00 115 18 128/90 93 Nasal Cannula 2.00 07/10/21 07:00 98 07/10/21 06:29 121 93 28 07/10/21 06:00 121 18 138/97 93 Nasal Cannula 2.00 07/10/21 05:15 130 12 124/97 93 Nasal Cannula 2.00 07/10/21 04:45 134 17 138/107 91 Nasal Cannula 2.00 07/10/21 04:17 Nasal Cannula 2.00 07/10/21 04:15 110 17 141/102 95 Nasal Cannula 2.00 I & O 07/11/21 07:00 Intake Total 2455 ml Output Total 6200 ml Balance -3745 ml Height & Weight Height: '" Weight: lbs. oz. kg; 50.85 BMI Method: General Appearance: No Apparent Distress, Chronically ill, Obese, Other (drowsy) HEENT: PERRL/EOMI, Moist Mucous Membranes; No Scleral Icterus (L), No Scleral Icterus (R) Neck: Normal Inspection, Supple Respiratory: No Accessory Muscle Use, No Respiratory Distress, Crackles Cardiovascular: No Murmur, Irregularly Irregular, Tachycardia Capillary Refill: Less Than 3 Seconds Peripheral Pulses: 1+ Dorsalis Pedis (R), 1+ Left Dors-Pedis (L) Extremity: Pedal Edema, Swelling (2+ bilaterally) Neurologic/Psychiatric: Alert, Oriented x3, Normal Mood/Affect Skin: Erythema (venous stasis dermatitis on lower extremities) Results Lab Laboratory Tests 07/10/21 04:41 Assessment/Plan Assessment/Plan Pt with possible undiagnosed marciano, develops occasional hypoxemia when asleep; we will start bipap 06/21- abg/ cxray ordered as well MARILEE DAIGLE MD Jul 11, 2021 04:07
[2021-07-11 06:05] LABS: BASOPHILS # (AUTO) 0.1 10^3/uL (0.0-0.1); BASOPHILS % (AUTO) 1 % (0-10); EOSINOPHILS # (AUTO) 0.3 10^3/uL (0.0-0.3); EOSINOPHILS % (AUTO) 2 % (0-10); HEMATOCRIT 38 % (35-52); HEMOGLOBIN 11.6 g/dL (11.5-16.0); LYMPHOCYTES # (AUTO) 3.4 10^3/uL (1.0-4.0); LYMPHOCYTES % (AUTO) 20 % (12-44); MEAN CORPUSCULAR HEMOGLOBIN 26 pg (25-34); MEAN CORPUSCULAR HGB CONC 31 g/dL (32-36); MEAN CORPUSCULAR VOLUME 85 fL (80-99); MEAN PLATELET VOLUME 9.8 fL (9.0-12.2); MONOCYTES # (AUTO) 0.7 10^3/uL (0.0-1.0); MONOCYTES % (AUTO) 4 % (0-12); NEUTROPHILS # (AUTO) 12.6 10^3/uL (1.8-7.8); NEUTROPHILS % (AUTO) 74 % (42-75); PLATELET COUNT 357 10^3/uL (130-400); WHITE BLOOD COUNT 17.1 10^3/uL (4.3-11.0)
[2021-07-11 06:25] LABS: ALBUMIN 3.1 GM/DL (3.2-4.5); POTASSIUM 3.5 MMOL/L (3.6-5.0)
[2021-07-11 06:26] LABS: CALCIUM 8.8 MG/DL (8.5-10.1)
[2021-07-11 06:28] LABS: TOTAL PROTEIN 6.6 GM/DL (6.4-8.2)
[2021-07-11 06:29] LABS: BILIRUBIN,TOTAL 0.6 MG/DL (0.1-1.0)
[2021-07-11 06:31] LABS: CREATININE SERUM 0.69 MG/DL (0.60-1.30); PHOSPHORUS 2.7 MG/DL (2.3-4.7)
[2021-07-11 06:34] LABS: MAGNESIUM 1.8 MG/DL (1.6-2.4)
[2021-07-11] MEDS: KCL 20 MEQ TAB (K-DUR) PO SCH (06:44)
[2021-07-11] MEDS: MAGNESIUM 1 GM/100 ML IVPB 100 ML IV SCH (06:44)
[2021-07-11 07:01] LABS: EOSINOPHILS % (MANUAL) 2 %; HYPOCHROMASIA SLIGHT; LYMPHOCYTES % (MANUAL) 15 %; MICROCYTOSIS SLIGHT; MONOCYTES % (MANUAL) 6 %; NEUTROPHILS % (MANUAL) 77 %
--- NOTE | 2021-07-11 07:13 | Diagnostic Imaging Report ---
EXAMINATION: Chest 1 view HISTORY: Pulmonary edema COMPARISON: 06/02/2021 FINDINGS: There is mild pulmonary edema. Heart is enlarged. No pleural effusion or pneumothorax. There is mild right base atelectasis. IMPRESSION: 1. Mild pulmonary edema and enlarged heart. Dictated by: Dictated on workstation # [id number]
[2021-07-11] MEDS: POTASSIUM CL 10MEQ/50ML IVPB 50 ML IV SCH ×3 (07:31→09:16)
[2021-07-11] MEDS: inSUlin ASPART (NovoLOG) 1 UNIT/0.01 ML (CHARGE PER UNIT) SC SCH ×3 (07:31→15:32)
[2021-07-11] MEDS: FUROSEMIDE 40 MG/4 ML INJ (LASIX) IVP SCH ×2 (07:32→17:19)
--- NOTE | 2021-07-11 08:38 | Cardiology Progress Note ---
Progress Note-Cardiology Events since last exam Date Seen by Provider: Jul 11, 2021 Time Seen by Provider: 08:36 Events since last exam I am following her for atrial fibrillation. Her chest discomfort which was present on admission is now resolved. Her breathing is improved. She denies palpitations or syncope. Her chronic ankle edema is unchanged. She did run out of some of her medication a few days prior to admission. However, she is adamant that she did not miss any of her Xarelto. Certain portions of this document may have been dictated utilizing voice recognition technology. Inherent to this technology, typographical and grammatical errors may exist. As much as I am diligent to identify and correct these mistakes, some errors may remain in the document. Vitals Last set of Vitals Signs Vital Signs 07/10/21 07/11/21 07/11/21 07/11/21 07/11/21 06:29 06:00 07:00 07:45 07:55 Temp 35.6 Pulse 97 Resp 21 B/P (MAP) 138/93 Pulse Ox 91 O2 Delivery Room Air O2 Flow Rate 2.00 FiO2 28 Labs Labs Laboratory Tests 07/11/21 05:20 Exam Vital Signs Vital Signs Date Time Temp Pulse Resp B/P (MAP) Pulse Ox O2 Delivery O2 Flow Rate FiO2 07/11/21 07:55 Room Air 07/11/21 07:45 35.6 07/11/21 07:00 97 07/11/21 06:00 21 138/93 91 2.00 07/10/21 06:29 28 Physical Exam General: Alert. No acute distress. She is morbidly obese. Eye: No xanthelasma. HENT: Normocephalic. Neck: Jugular venous pressure does not appear elevated. Respiratory: Lungs are clear to auscultation. Respirations are non-labored. Breath sounds are equal. Symmetrical chest wall expansion. Cardiovascular: Intermittent tachycardia with irregular rhythm. No murmur. No gallop. 1+ bilateral pretibial edema. Gastrointestinal: Soft. Normal bowel sounds. Skin: Warm. Dry. Neurologic: Alert and oriented to person, place, time. Cranial nerves 3-11 grossly intact. Psychiatric: Cooperative. Appropriate mood & affect. Labs Laboratory Tests Test 07/10/21 09:17 07/10/21 10:57 07/10/21 17:10 07/10/21 20:06 Range/Units Blood Gas Puncture Site RT RAD Blood Gas Patient Temperature 36.7 Arterial Blood pH 7.45 H 7.37-7.43 Arterial Blood Partial Pressure CO2 44 35-45 MMHG Arterial Blood Partial Pressure O2 62 L 79-93 MMHG Arterial Blood HCO3 30 H 23-27 MMOL/L Arterial Blood Total CO2 30.9 21.0-31.0 MMOL/L Arterial Blood Oxygen Saturation 93 L 94-100 % Arterial Blood Base Excess 5.5 H -2.5-2.5 MMOL/L Hector Test YES-POS Blood Gas Ventilator Setting NO Blood Gas Inspired Oxygen 1 L Glucometer 174 H 210 H 242 H 70-110 MG/DL Test 07/11/21 05:20 Range/Units White Blood Count 17.1 H 4.3-11.0 10^3/uL Red Blood Count 4.39 3.80-5.11 10^6/uL Hemoglobin 11.6 11.5-16.0 g/dL Hematocrit 38 35-52 % Mean Corpuscular Volume 85 80-99 fL Mean Corpuscular Hemoglobin 26 25-34 pg Mean Corpuscular Hemoglobin Concent 31 L 32-36 g/dL Red Cell Distribution Width 16.7 H 10.0-14.5 % Platelet Count 357 130-400 10^3/uL Mean Platelet Volume 9.8 9.0-12.2 fL Immature Granulocyte % (Auto) 1 % Neutrophils (%) (Auto) 74 42-75 % Lymphocytes (%) (Auto) 20 12-44 % Monocytes (%) (Auto) 4 0-12 % Eosinophils (%) (Auto) 2 0-10 % Basophils (%) (Auto) 1 0-10 % Neutrophils # (Auto) 12.6 H 1.8-7.8 10^3/uL Lymphocytes # (Auto) 3.4 1.0-4.0 10^3/uL Monocytes # (Auto) 0.7 0.0-1.0 10^3/uL Eosinophils # (Auto) 0.3 0.0-0.3 10^3/uL Basophils # (Auto) 0.1 0.0-0.1 10^3/uL Immature Granulocyte # (Auto) 0.1 0.0-0.1 10^3/uL Neutrophils % (Manual) 77 % Lymphocytes % (Manual) 15 % Monocytes % (Manual) 6 % Eosinophils % (Manual) 2 % Hypochromasia SLIGHT Microcytosis SLIGHT Sodium Level 138 135-145 MMOL/L Potassium Level 3.5 L 3.6-5.0 MMOL/L Chloride Level 103 98-107 MMOL/L Carbon Dioxide Level 23 21-32 MMOL/L Anion Gap 12 5-14 MMOL/L Blood Urea Nitrogen 11 7-18 MG/DL Creatinine 0.69 0.60-1.30 MG/DL Estimat Glomerular Filtration Rate 94 BUN/Creatinine Ratio 16 Glucose Level 211 H 70-105 MG/DL Calcium Level 8.8 8.5-10.1 MG/DL Corrected Calcium 9.5 8.5-10.1 MG/DL Phosphorus Level 2.7 2.3-4.7 MG/DL Magnesium Level 1.8 1.6-2.4 MG/DL Total Bilirubin 0.6 0.1-1.0 MG/DL Aspartate Amino Transf (AST/SGOT) 19 5-34 U/L Alanine Aminotransferase (ALT/SGPT) 18 0-55 U/L Alkaline Phosphatase 91 40-136 U/L Total Protein 6.6 6.4-8.2 GM/DL Albumin 3.1 L 3.2-4.5 GM/DL Diagnosis/Problems Diagnosis/Problems (1) Persistent atrial fibrillation Assessment & Plan: She remains in atrial fibrillation. She stopped her metoprolol a few days prior to admission which most likely resulted in tachycardia leading to acute on chronic heart failure. She remains on intravenous diltiazem. She was placed on apixaban for stroke prophylaxis but was taking Xarelto at home. I will restart metoprolol but at a somewhat lower dose since she did have some low blood pressures since admission. I will give her another dose of apixaban this morning and then change her back over to Xarelto this evening. I asked her several times if she had missed any doses of Xarelto in the past 30 days and she is adamant that she took Xarelto every day since she was discharged in May. That puts her 30 days out from the initial diagnosis with anticoagulation since then. (2) Cardiomyopathy Assessment & Plan: I suspect she may have tachycardia mediated cardiomyopathy. Her ejection fraction was 40-45% by echocardiogram on 06/01/2021. She will need a follow-up echocardiogram after we get her back in sinus rhythm. However, I would wait at least 1-2 months of sinus rhythm before repeating the echocardiogram. We will continue metoprolol succinate. If her blood pressures will tolerate, we can also try to add ROLAND inhibitor or ARB prior to discharge. (3) Acute on chronic systolic heart failure Assessment & Plan: Most likely related to stopping her metoprolol and then developing tachycardia. Symptomatically, she is already improved today. (4) Morbid obesity Assessment & Plan: She needs to work on weight loss. Just 20 pounds of weight loss would help reduce the risk of recurrent atrial fibrillation assuming we can get her back into a sinus rhythm. TREVA LLANES JR, MD Jul 11, 2021 08:38
[2021-07-11] MEDS ORDERED: MIDAZOLAM 2 MG/2 ML (VERSED) VIAL ONE (08:42)
[2021-07-11] MEDS ORDERED: meTOprolol SUCCINATE 100 MG (TOPROL XL) TAB PO SCH (09:00)
[2021-07-11] MEDS ORDERED: NICOTINE PATCH REMOVAL TP SCH (09:00)
--- NOTE | 2021-07-11 09:03 | Cardiac Procedure Note ---
Cardiology Procedures Date of Procedure 07/11/21 DIRECT-CURRENT CARDIOVERSION DATE OF PROCEDURE: 07/11/2021. INDICATION: Persistent atrial fibrillation. PROCEDURE: After informed consent and in the fasting state, deep sedation was provided by the anesthesia department. I subsequently performed direct-current cardioversion with 3 synchronized biphasic shocks at 200 J. Following the second and third shock, she had one sinus beat but then reverted to atrial fibrillation. IMPRESSION: 1. Status post unsuccessful direct-current cardioversion with 3 synchronized biphasic shocks at 200 J. 2. I will initiate therapy with sotalol. 3. I will change her apixaban back over the rivaroxaban which she was taking at home. TREVA LLANES JR, MD Jul 11, 2021 09:03
--- NOTE | 2021-07-11 09:07 | Tele-ICU Progress Note ---
Subjective Date Seen by a Provider: Jul 11, 2021 Subjective/Events-last exam 40 yo F with a fib with RVR, started on IV Cardizem, CXR shows increase in HS and mild congestion, CTA pending-IV Lasix, also given Failed elective cardioversion, Now on IV sotalol with V rate of 87, still a fib Mild SOB, no CP, Thought to have MIMI, RN observes obvious apneas. last night tried BiPAP 06/21 but pt stopped after 15 min pt is morbidly obese with BMI 50. Sepsis Event Evaluation Height, Weight, BMI Height: '" Weight: lbs. oz. kg; 50.85 BMI Method: Focused Exam Lactate Level 07/10/21 04:41: Lactic Acid Level 1.19 Exam Exam Patient acknowledged, consented, and participated in this virtual visit which was conducted using real time audio/video Vital Signs Date Time Temp Pulse Resp B/P (MAP) Pulse Ox O2 Delivery O2 Flow Rate FiO2 07/11/21 08:00 92 21 108/93 91 Room Air 07/11/21 07:55 Room Air 07/11/21 07:45 35.6 07/11/21 07:34 Room Air 07/11/21 07:00 105 20 126/93 90 Nasal Cannula 2.00 07/11/21 07:00 97 07/11/21 06:00 93 21 138/93 91 Nasal Cannula 2.00 07/11/21 05:00 98 16 140/103 91 Nasal Cannula 2.00 07/11/21 04:30 Room Air 07/11/21 04:17 114 17 95 30.00 07/11/21 04:05 NIV Bilevel 30.00 07/11/21 04:00 109 24 143/104 88 Nasal Cannula 2.00 07/11/21 04:00 35.8 07/11/21 04:00 Nasal Cannula 2.00 07/11/21 03:00 114 21 133/104 93 Nasal Cannula 2.00 07/11/21 02:15 113 21 121/88 91 Nasal Cannula 2.00 07/11/21 01:00 122 19 112/83 90 Nasal Cannula 2.00 07/11/21 01:00 122 07/11/21 00:26 35.9 07/11/21 00:00 Nasal Cannula 2.00 07/11/21 00:00 111 16 129/94 95 Nasal Cannula 2.00 07/10/21 23:00 125 16 100/81 93 Nasal Cannula 2.00 07/10/21 22:15 130 24 135/84 94 Nasal Cannula 2.00 07/10/21 21:00 111 15 113/85 93 Nasal Cannula 2.00 07/10/21 20:08 36.6 Nasal Cannula 2.00 07/10/21 20:08 131 17 106/86 89 Nasal Cannula 2.00 07/10/21 20:00 Nasal Cannula 2.00 07/10/21 19:00 106 07/10/21 19:00 106 16 148/103 96 Nasal Cannula 2.00 07/10/21 18:00 116 16 123/98 94 Nasal Cannula 2.00 07/10/21 17:11 36.6 07/10/21 17:00 125 22 128/107 93 Nasal Cannula 2.00 07/10/21 16:00 125 21 124/100 94 Nasal Cannula 2.00 07/10/21 15:13 Nasal Cannula 1.00 07/10/21 15:00 94 16 140/92 92 Nasal Cannula 2.00 07/10/21 14:00 97 20 115/82 94 Nasal Cannula 2.00 07/10/21 13:00 117 16 118/95 94 Nasal Cannula 2.00 07/10/21 12:31 127 07/10/21 12:10 36.6 07/10/21 12:00 52 15 142/96 93 Nasal Cannula 2.00 07/10/21 11:43 Nasal Cannula 1.00 07/10/21 11:00 138 18 95/73 92 Nasal Cannula 2.00 07/10/21 10:45 94 Nasal Cannula 2.00 07/10/21 10:00 116 19 119/99 89 Nasal Cannula 2.00 07/10/21 09:15 36.7 I & O 07/11/21 07:00 Intake Total 2705 ml Output Total 7300 ml Balance -4595 ml Height & Weight Height: '" Weight: lbs. oz. kg; 50.85 BMI Method: General Appearance: No Apparent Distress, Chronically ill, Obese, Other (drowsy) HEENT: PERRL/EOMI, Moist Mucous Membranes; No Scleral Icterus (L), No Scleral Icterus (R) Neck: Normal Inspection, Supple Respiratory: Lungs Clear, No Accessory Muscle Use, No Respiratory Distress, Crackles, Other (having apneas during sleep) Cardiovascular: No Murmur, Irregularly Irregular, Tachycardia Capillary Refill: Less Than 3 Seconds Peripheral Pulses: 1+ Dorsalis Pedis (R), 1+ Left Dors-Pedis (L) Gastrointestinal: normal bowel sounds, non tender, soft, hernia (sounds like has ventral hernia), other Extremity: No Pedal Edema, Pedal Edema, Swelling (2+ bilaterally) Neurologic/Psychiatric: Alert, Oriented x3, Normal Mood/Affect Skin: Erythema (venous stasis dermatitis on lower extremities) Results Lab Laboratory Tests 07/10/21 04:41 07/11/21 05:20 Assessment/Plan Assessment/Plan A fib-V rate is low in 90's, cardizem IV stopped, now on IV sotalol and Metoprolol 100 bid. await results of CTA JOE MORLEY MD Jul 11, 2021 09:07
[2021-07-11] MEDS ORDERED: SOTALOL 80 MG (BETAPACE) TAB PO SCH (09:15)
[2021-07-11] MEDS: NICOTINE 7 MG (NICODERM) PATCH TD SCH (09:28)
[2021-07-11] MEDS ORDERED: FURO20TA4 PO (09:44)
[2021-07-11] MEDS ORDERED: MTP100TCR PO (09:44)
[2021-07-11] MEDS ORDERED: RIVA20TA PO (09:44)
[2021-07-11 09:56] LABS: CALCIUM 8.8 MG/DL (8.5-10.1); CREATININE SERUM 0.69 MG/DL (0.60-1.30); POTASSIUM 3.5 MMOL/L (3.6-5.0)
[2021-07-11] MEDS ORDERED: proPOfol 200 MG/20 ML (DIPRIVAN) VIAL IV ONE (10:30)
--- NOTE | 2021-07-11 12:12 | Progress Note ---
Subjective Subjective Date Seen by Provider: Jul 11, 2021 Time Seen by Provider: 09:00 Pt reports feeling ok this morning. Denies any N/V, sweats/chills, chest pain or SOA. Review of Systems ROS Unable to Obtain: drowsiness General: No Chills, No Night Sweats HEENT: No Head Aches Pulmonary: No Dyspnea Cardiovascular: No: Chest Pain Gastrointestinal: No: Nausea, Vomiting Objective Exam Vital Signs Vital Signs Date Time Temp Pulse Resp B/P (MAP) Pulse Ox O2 Delivery O2 Flow Rate FiO2 07/11/21 11:39 Room Air 07/11/21 11:30 36.4 07/11/21 11:00 66 35 129/85 Room Air 07/11/21 10:00 125 32 92 Room Air 07/11/21 09:49 97 07/11/21 09:00 112 12 102/88 89 Room Air 07/11/21 08:00 92 21 108/93 91 Room Air 07/11/21 07:55 Room Air 07/11/21 07:45 35.6 07/11/21 07:34 Room Air 07/11/21 07:00 105 20 126/93 90 Nasal Cannula 2.00 07/11/21 07:00 97 07/11/21 06:00 93 21 138/93 91 Nasal Cannula 2.00 07/11/21 05:00 98 16 140/103 91 Nasal Cannula 2.00 07/11/21 04:30 Room Air 07/11/21 04:17 114 17 95 30.00 07/11/21 04:05 NIV Bilevel 30.00 07/11/21 04:00 109 24 143/104 88 Nasal Cannula 2.00 07/11/21 04:00 35.8 07/11/21 04:00 Nasal Cannula 2.00 07/11/21 03:00 114 21 133/104 93 Nasal Cannula 2.00 07/11/21 02:15 113 21 121/88 91 Nasal Cannula 2.00 07/11/21 01:00 122 19 112/83 90 Nasal Cannula 2.00 07/11/21 01:00 122 07/11/21 00:26 35.9 07/11/21 00:00 Nasal Cannula 2.00 07/11/21 00:00 111 16 129/94 95 Nasal Cannula 2.00 07/10/21 23:00 125 16 100/81 93 Nasal Cannula 2.00 07/10/21 22:15 130 24 135/84 94 Nasal Cannula 2.00 07/10/21 21:00 111 15 113/85 93 Nasal Cannula 2.00 07/10/21 20:08 36.6 Nasal Cannula 2.00 07/10/21 20:08 131 17 106/86 89 Nasal Cannula 2.00 07/10/21 20:00 Nasal Cannula 2.00 07/10/21 19:00 106 07/10/21 19:00 106 16 148/103 96 Nasal Cannula 2.00 07/10/21 18:00 116 16 123/98 94 Nasal Cannula 2.00 07/10/21 17:11 36.6 07/10/21 17:00 125 22 128/107 93 Nasal Cannula 2.00 07/10/21 16:00 125 21 124/100 94 Nasal Cannula 2.00 07/10/21 15:13 Nasal Cannula 1.00 07/10/21 15:00 94 16 140/92 92 Nasal Cannula 2.00 07/10/21 14:00 97 20 115/82 94 Nasal Cannula 2.00 07/10/21 13:00 117 16 118/95 94 Nasal Cannula 2.00 07/10/21 12:31 127 07/10/21 12:10 36.6 I & O 07/11/21 07:00 Intake Total 2705 ml Output Total 7300 ml Balance -4595 ml General Appearance: No Apparent Distress, Chronically ill, Obese, Other (drowsy) HEENT: PERRL/EOMI, Moist Mucous Membranes Neck: Normal Inspection, Supple Respiratory: Lungs Clear, No Accessory Muscle Use, No Respiratory Distress Cardiovascular: No Murmur, Irregularly Irregular Gastrointestinal: Normal Bowel Sounds, Non Tender, Soft Extremity: Pedal Edema, Swelling (2+ bilaterally) Neurologic/Psychiatric: Alert, Oriented x3, Normal Mood/Affect Skin: Erythema (venous stasis dermatitis on lower extremities) Results Lab Laboratory Tests 07/10/21 17:10: Glucometer 210H 07/10/21 20:06: Glucometer 242H 07/11/21 05:20: White Blood Count 17.1H, Red Blood Count 4.39, Hemoglobin 11.6, Hematocrit 38, Mean Corpuscular Volume 85, Mean Corpuscular Hemoglobin 26, Mean Corpuscular Hemoglobin Concent 31L, Red Cell Distribution Width 16.7H, Platelet Count 357, Mean Platelet Volume 9.8, Immature Granulocyte % (Auto) 1, Neutrophils (%) (Auto) 74, Lymphocytes (%) (Auto) 20, Monocytes (%) (Auto) 4, Eosinophils (%) (Auto) 2, Basophils (%) (Auto) 1, Neutrophils # (Auto) 12.6H, Lymphocytes # (Auto) 3.4, Monocytes # (Auto) 0.7, Eosinophils # (Auto) 0.3, Basophils # (Auto) 0.1, Immature Granulocyte # (Auto) 0.1, Neutrophils % (Manual) 77, Lymphocytes % (Manual) 15, Monocytes % (Manual) 6, Eosinophils % (Manual) 2, Hypochromasia SLIGHT, Microcytosis SLIGHT, Sodium Level 138, Potassium Level 3.5L, Chloride Level 103, Carbon Dioxide Level 23, Anion Gap 12, Blood Urea Nitrogen 11, Creatinine 0.69, Estimat Glomerular Filtration Rate 94, BUN/Creatinine Ratio 16, Glucose Level 211H, Calcium Level 8.8, Corrected Calcium 9.5, Phosphorus Level 2.7, Magnesium Level 1.8, Total Bilirubin 0.6, Aspartate Amino Transf (AST/SGOT) 19, Alanine Aminotransferase (ALT/SGPT) 18, Alkaline Phosphatase 91, Total Protein 6.6, Albumin 3.1L 07/11/21 09:30: Sodium Level 141, Potassium Level 3.5L, Chloride Level 103, Carbon Dioxide Level 26, Anion Gap 12, Blood Urea Nitrogen 9, Creatinine 0.69, Estimat Glomerular Filtration Rate 94, BUN/Creatinine Ratio 13, Glucose Level 158H, Calcium Level 8.8 07/11/21 10:45: Glucometer 189H Microbiology 07/10/21 MRSA Screen - Final, Complete MRSA not isolated Assessment/Plan Assessment/Plan Assessment and Plan AFib with RVR Acute on chronic systolic HF w/pulmonary edema Hypokalemia Hypomagnesemia Cardiology on board, cardioversion was unsuccessful this morning Continue Metoprolol Start Sotalol, stop Cardizem Repeat echo once back in normal sinus rhythm Switched from Eliquis to Xarelto CXR today revealed mild pulmonary edema Lasix Lens Generating [employer] Tender electrolytes, replace as needed Leukocytosis No indication of infection Anemia Mild, no need for intervention right now T2DM with hyperglycemia History of noncompliance Sliding scale insulin A1c last month was 7.5 Super obesity Clinically significant, no acute management needs High risk for MIMI. Recommend sleep study outpatient. Tobacco abuse Nicotine patch DVT prophylaxis: already receiving therapeutic anticoagulation Problems: (1) Atrial fibrillation with rapid ventricular response (2) Acute on chronic systolic heart failure (3) Acute respiratory failure with hypoxemia (4) Noncompliance with medication regimen (5) Super obesity Supervisory-Addendum Brief Verification & Attestation Participated in pt care: history, MDM, physical Personally performed: exam, history, MDM, supervision of care Care discussed with: Medical Student Procedures: n/a Results interpretation: Verified all documentation A medical student performed and documented this service in my presence. I reviewed and verified all information documented by the medical student and made modifications to such information, when appropriate. I personally performed the physical exam and medical decision making. MARTHA AU Jul 11, 2021 12:12 ODESSA SOMMERS MD Jul 11, 2021 17:56
[2021-07-11] MEDS ORDERED: RIVAROXABAN 20 MG TABLET (XARELTO) PO SCH (17:00)
== END 2021-07-11 22:00 | disposition left against medical advice (07) | DRG 291 ==
LOC: ICU 07-10 03:10
PROVIDERS: ADMIT Family Medicine; ATTEND Internal Medicine
PROC: 5A2204Z Restoration of Cardiac Rhythm, Single (ICD-10-PCS; principal; 2021-07-11)
PROC: 5A09357 Assistance with Respiratory Ventilation, Less than 24 Consecutive Hours, Continuous Positive Airway Pressure (ICD-10-PCS; 2021-07-11)
DX: I11.0 Hypertensive heart disease with heart failure (principal); I50.23 Acute on chronic systolic (congestive) heart failure; J96.01 Acute respiratory failure with hypoxia; Z68.43 Body mass index [BMI] 50.0-59.9, adult; I48.0 Paroxysmal atrial fibrillation; I42.9 Cardiomyopathy, unspecified; E66.01 Morbid (severe) obesity due to excess calories; E11.65 Type 2 diabetes mellitus with hyperglycemia; F17.210 Nicotine dependence, cigarettes, uncomplicated; E87.6 Hypokalemia; E83.42 Hypomagnesemia; I87.2 Venous insufficiency (chronic) (peripheral); H54.7 Unspecified visual loss; I73.9 Peripheral vascular disease, unspecified; Z86.16 Personal history of COVID-19; Z91.14 Patient's other noncompliance with medication regimen; Z79.84 Long term (current) use of oral hypoglycemic drugs; Z88.6 Allergy status to analgesic agent
CPT/HCPCS: 36415; 36600; 71045; 80048; 80053; 82805; 82947; 83605; 83735; 84100; 84145; 85007; 85027; 87081; 93005; 93306; 94640; 94660; 94664